=== PATIENT | female | born 1965 | race Caucasian/White ===

== ENCOUNTER → 2018-05-22 10:55 | Outpatient (CLI) | payer MEDICAID, SELFPAY ==
[2018-05-22 12:01] LABS: Absolute Lymphocyte Count 3.37 X10^3/ul (0.83-4.51); Absolute Neutrophil Count 7.8 X10^3/uL (2.0-7.7); Basophil# 0.05 X10^3/uL; Basophil% 0.4 % (0-1); Eosinophil# 0.21 X10^3/uL; Eosinophils% 1.7 % (0-5); Hematocrit 45.9 % (37-47); Lymphocyte # 3.37 X10^3/ul (4.0); Lymphocyte % 27.3 % (19-41); Mean Corp Hgb Conc 32.7 g/gl (32-36); Mean Corpuscular Hgb 32.5 pg (27.0-32.0); Mean Corpuscular Volume 99.4 fL (81-99); Mean Platelet Vol. 10.1 fl (6.2-12.0); Monocyte# 0.81 X10^3/uL; Monocyte% 6.6 % (0-10); Neutrophil # 7.79 X10^3/uL (2.7-7.7); Neutrophil % 63.2 % (47-70); Platelet Count 406 K/mm3 (150-450); Red Blood Count 4.62 M/mm3 (4.2-5.4); White Blood Count 12.3 K/mm3 (4.4-11.0)
[2018-05-22 12:06] LABS: POSITIVE COUNT NO; POSITIVE DIFFERENTIAL NO; POSITIVE MORPHOLOGY NO
[2018-05-22 12:20] LABS: ALB/GLOB Ratio 0.7 RATIO (0.9-2.4); AST(SGOT) 19 U/L (15-37); Alanine Aminotransfer ALT/SGPT 27 U/L (13-56); Albumin, Serum 3.2 g/dL (3.2-5.0); Alkaline Phosphatase 79 U/L (45-117); Anion Gap 8 (5-15); BUN 21 mg/dL (7-18); BUN/Creat Ratio 21.9 RATIO (10-20); Chloride 102 mmol/L (98-107); Cholesterol 180 mg/dL (200); Creatinine, Serum 0.96 mg/dL (0.55-1.02); EST Glomerular Filtration Rate 65 mL/min (>60); Est Glom Filt Rate - Afr Amer 78 mL/min (>60); Globulin 4.3 g/dL (2.2-4.2); Glucose 108 mg/dL (74-106); High Density Lipoprotein 42 mg/dL; Potassium 3.4 mmol/L (3.5-5.1); Protein, Total 7.5 g/dL (6.4-8.2); Sodium Level 138 mmol/L (136-145); Triglycerides 264 mg/dL; Very Low Density Lipoprotein 53 mg/dL (5-40)
--- OUTSIDE RECORDS SUMMARY | 2018-07-08 06:08 | XMS RPT_ITS | Summary of Care ---
:1965 Author Organization [facility] Address [address] [place] [address] Phone Care Team Providers Name Role Phone Antonina Perdue MD Primary Care Provider Unavailable Encounter Details Date Type Department Care Team Description 03/14/2017 Documentation [facility] Orthopedic & Dalia Law, Sports Medicine Physicians HELP DESK AGENT [address] [place] [id number] Allergies Active Allergy Reactions Severity Noted Date Comments Azithromycin GI Intolerance Medium 10/29/2011 Other reaction(s): Nausea Only Other reaction(s): Vomiting as of this encounter Medications Prescription Sig. Disp. Refills Start Date End Date Status lisinopril-hydrochlorothi Take by mouth. Active azide (PRINZIDE,ZESTORETIC) 20-25 mg per tablet metoprolol tartrate Take 25 mg by mouth Active (LOPRESSOR) 25 MG tablet 2 (two) times a day . atorvastatin (LIPITOR) 10 Take 10 mg by mouth Active MG tablet daily. albuterol 90 Inhale 2 puffs Active mcg/actuation inhaler every 6 (six) hours as needed for wheezing. as of this encounter Active Problems Problem Noted Date Hypertension Hyperlipemia as of this encounter Social History Tobacco Use Types Packs/Day Years Used Date Current Every Day Smoker 0.25 30 Smokeless Tobacco: Never Used Alcohol Use Drinks/Week oz/Week Comments Yes 3 Glasses of wine 1.8 Sex Assigned at Date Recorded Not on file as of this encounter Progress Notes Dalia Law LPN - 03/14/2017 4:23 PM EDTI spoke dimitry Moore today and she says she is doing ok. This am when she got up her swelling was down a lot. She denies any constipation/nando this encounter Plan of Treatment Upcoming Encounters Date Type Specialty Care Team Description 03/25/2017 Follow-Up Sports Medicine Arnaud Rizvi MD [address] [facility] [place] [address] [phone] Health Maintenance Due Date Last Done Comments COLONOSCOPY 1965 HEPATITIS C SCREENING 1965 PAP SMEAR 1965 TETANUS EVERY 10 YR 1965 SEQUENTIAL INFLUENZA VACCINE (#1) 2017 as of this encounter Insurance Payer Benefit Plan / Group Subscriber ID Type Phone Address [employer] MANAGED MEDICAID [employer] MED[employer] COMMUNITY PLAN [id number] as of this encounter
--- OUTSIDE RECORDS SUMMARY | 2018-07-08 06:08 | XMS RPT_ITS | Summary of Care ---
:1965 Author Organization [facility] Address [address] [place] [address] Phone Care Team Providers Name Role Phone Antonina Perdue MD Primary Care Provider Unavailable Encounter Details Date Type Department Care Team Description 02/19/2017 Hospital Encounter [facility] Arnaud Rizvi MD [place], [place] [address] [address] [place], [place] [id number] Allergies Active Allergy Reactions Severity Noted Date Comments Azithromycin Medium 10/29/2011 Other reaction(s): Nausea Only Other reaction(s): Vomiting as of this encounter Medications Prescription Sig. Disp. Refills Start Date End Date Status lisinopril-hydrochlorothia Take by mouth. Active zide (PRINZIDE,ZESTORETIC) 20-25 mg per tablet metoprolol tartrate Take 25 mg by Active (LOPRESSOR) 25 MG tablet mouth 2 (two) times a day . as of this encounter Active Problems Problem Noted Date Hypertension Hyperlipemia as of this encounter Social History Tobacco Use Types Packs/Day Years Used Date Current Every Day Smoker 0.25 30 Smokeless Tobacco: Never Used Alcohol Use Drinks/Week oz/Week Comments Yes 3 Glasses of wine 1.8 Sex Assigned at Date Recorded Not on file as of this encounter Plan of Treatment Upcoming Encounters Date Type Specialty Care Team Description 02/25/2017 Surgical Consult Sports Medicine Arnaud Rizvi MD [address] [place], [place] [phone] 03/07/2017 Hospital Encounter Arnaud Rizvi MD [address] [place], [place] [address] 03/07/2017 Scanned Document Sports Medicine Arnaud Rizvi MD [address] [place] [phone] Health Maintenance Due Date Last Done Comments COLONOSCOPY 1965 HEPATITIS C SCREENING 1965 PAP SMEAR 1965 TETANUS EVERY 10 YR 1965 SEQUENTIAL INFLUENZA VACCINE (#1) 2017 as of this encounter Results Basic Metabolic Panel (02/19/2017 10:25 AM) Component Value Ref Range Glucose 75 70 - 99 mg/dL Comment: This test result might be falsely depressed or falsely elevated on samples drawn from patients taking Sulfasalazine and Sulfapyridine. Venipuncture should occur prior to taking either of these drugs. BUN 13 8 - 25 mg/dL Creatinine 0.93 0.40 - 1.10 mg/dL eGFR >=60 ml/min/1.73sq.m Comment: Non- GFR Calc eGFR is an estimated Glomerular Filtration Rate based on the value of the patient's serum creatinine. In outpatients, eGFR should be used as a helpful tool in screening for CKD. In inpatients or patients with acute renal failure, eGFR represents the GFR at the moment of the draw and should be used with caution. eGFR >=60Comment: GFR Calc ml/min/1.73sq.m Calcium 9.0 8.4 - 10.2 mg/dL Sodium 142 135 - 145 mmol/L Potassium 3.7 3.5 - 5.1 mmol/L Chloride 104 98 - 108 mmol/L CO2 28 21 - 32 mmol/L Specimen Performing Laboratory Blood [address] [address] CBC and Differential (02/19/2017 10:25 AM) Component Value Ref Range WBC 11.5 (H) 3.4 - 10.6 K/mcL RBC 4.46 3.7 - 5.0 M/mcL Hemoglobin 15.3 11.6 - 15.4 g/dL Hematocrit 44.0 34.4 - 44.8 % MCV 98.7 82.6 - 98.9 FL MCH 34.3 (H) 27.9 - 33.9 pg MCHC 34.7 33.1 - 35.1 g/dL RDW 14.1 10.0 - 14.4 % Platelets 329 162 - 402 K/mcL MPV 8.0 7.0 - 10.6 FL Absolute Neutrophils 6.9 1.2 - 6.9 K/mcL Absolute Lymphocytes 3.6 1.0 - 3.7 K/mcL Absolute Monocytes 0.7 (H) 0.1 - 0.6 K/mcL Absolute Eosinophils 0.2 0 - 0.5 K/mcL Absolute Basophils 0.1 0 - 0.2 K/mcL Segmented Neut 59.7 % Lymphocytes 30.9 % Monocytes 6.2 % Eosinophils 2.1 % Basophils 1.1 % Specimen Performing Laboratory Blood [address] [address] in this encounter Insurance Payer Benefit Plan / Group Subscriber ID Type Phone Address [facility] MANAGED MEDICAID [facility] MEDICAID COMMUNITY PLAN [id number] as of this encounter
--- OUTSIDE RECORDS SUMMARY | 2018-07-08 06:08 | XMS RPT_ITS | Summary of Care ---
:1965 Author Organization [facility] Address [address] [place] [address] Care Team Providers Name Role Phone Antonina Perdue MD Primary Care Provider Unavailable Encounter Details Date Type Department Care Team Description 12/06/2017 Hospital Encounter [facility] Arnaud Rizvi Erik Portillo MD [place], [place] [address] [facility] [phone] [place] [address] Allergies Active Allergy Reactions Severity Noted Date Comments Azithromycin GI Intolerance Medium 10/29/2011 Other reaction(s): Nausea Only Other reaction(s): Vomiting as of this encounter Medications Prescription Sig. Disp. Refills Start Date End Date Status lisinopril-hydrochlorot Take by mouth. Active hiazide (PRINZIDE,ZESTORETIC) 20-25 mg per tablet metoprolol tartrate Take 25 mg by Active (LOPRESSOR) 25 MG mouth 2 (two) tablet times a day . atorvastatin (LIPITOR) Take 10 mg by Active 10 MG tablet mouth daily. albuterol 90 Inhale 2 puffs Active mcg/actuation inhaler every 6 (six) hours as needed for wheezing. aspirin 81 MG EC tablet Take 81 mg by Active mouth daily. acetaminophen-codeine Take 1 (one) 30 tablet 0 04/23/2017 Active (TYLENOL-CODEINE #3) tablet to 2 (two) 300-30 mg per tablets by mouth tabletIndications: 3 (three) times a Status post total left day as needed for knee replacement pain. as of this encounter Active Problems Problem Noted Date Hypertension Hyperlipemia Social History Tobacco Use Types Packs/Day Years Used Date Current Every Day Smoker 0.25 30 Smokeless Tobacco: Never Used Alcohol Use Drinks/Week oz/Week Comments Yes 3 Glasses of wine 1.8 Sex Assigned at Date Recorded Not on file as of this encounter Plan of Treatment Upcoming Encounters Date Type Specialty Care Team Description 12/10/2017 Hospital Encounter Arnaud Rizvi MD [address] [place], [place] [phone] 12/23/2017 Surgical Consult Sports Medicine Arnaud Rizvi MD [address] [place], [place] [phone] 01/02/2018 Hospital Encounter Arnaud Rizvi MD [address] [place], [place] [phone] 01/02/2018 Scanned Document Sports Medicine Arnaud Rizvi MD [address] [place], [place] [phone] Health Maintenance Due Date Last Done Comments COLONOSCOPY 1965 HEPATITIS C SCREENING 1965 PAP SMEAR 1965 TETANUS EVERY 10 YR 1965 SEQUENTIAL INFLUENZA VACCINE (Season Ended) 2018 as of this encounter
--- OUTSIDE RECORDS SUMMARY | 2018-07-08 06:08 | XMS RPT_ITS | Summary of Care ---
:1965 Author Organization [facility] Address [address] [place] [address] Care Team Providers Name Role Phone Antonina Perdue MD Primary Care Provider Unavailable Reason for Visit Reason Comments Follow-up Encounter Details Date Type Department Care Team Description 03/24/2018 Office Visit [facility] Orthopedic Adriana Rizvi Arthritis of right knee (Primary Dx); & Sports Medicine MD Bandar Status post total left knee replacement Physicians [address] [place] [address] [place] [id number] Allergies Active Allergy Reactions Severity Noted Date Comments Azithromycin GI Intolerance Medium 10/29/2011 Other reaction(s): Nausea Only Other reaction(s): Vomiting as of this encounter Medications Prescription Sig. Disp. Refills Start Date End Date Status lisinopril-hydrochl Take by mouth. Active orothiazide (PRINZIDE,ZESTORETI C) 20-25 mg per tablet metoprolol tartrate Take 25 mg by Active (LOPRESSOR) 25 MG mouth 2 (two) tablet times a day . atorvastatin Take 10 mg by Active (LIPITOR) 10 MG mouth daily. tablet albuterol 90 Inhale 2 puffs Active mcg/actuation every 6 (six) inhaler hours as needed for wheezing. aspirin 81 MG EC Take 81 mg by Active tablet mouth daily. acetaminophen-codei Take 1 (one) 30 tablet 0 04/23/2017 03/24/2018 Discontinued ne (TYLENOL-CODEINE tablet to 2 #3) 300-30 mg per (two) tablets tabletIndications: by mouth 3 Status post total (three) times left knee a day as replacement needed for pain. Hospital, Clinic, or Other Ordered Dose Route Frequency Start Date End Date Status Facility Administered Medication triamcinolone acetonide 20 mg IAtc Once 03/24/2018 03/24/2018 Ended (KENALOG-40) injection 20 mg as of this encounter Active Problems Problem Noted Date Hypertension Hyperlipemia Social History Tobacco Use Types Packs/Day Years Used Date Current Every Day Smoker 0.25 30 Smokeless Tobacco: Never Used Alcohol Use Drinks/Week oz/Week Comments Yes 3 Glasses of wine 1.8 Sex Assigned at Date Recorded Not on file as of this encounter Progress Notes Adriana Rizvi MD - 03/24/2018 5:09 PM EDT Dictation on: 03/24/2018 5:10 PM by: ADRIANA RIZVI [[id number]] in this encounter Plan of Treatment Health Maintenance Due Date Last Done Comments COLONOSCOPY 1965 HEPATITIS C SCREENING 1965 PAP SMEAR 1965 TETANUS EVERY 10 YR 1965 URINE MICROALBUMIN 1975 SEQUENTIAL INFLUENZA VACCINE (#1) 2018 as of this encounter Procedures Procedure Name Priority Date/Time Associated Diagnosis Comments XR KNEE LEFT 3 Routine 03/24/2018 5:10 PM Status post total Results for this VIEWS (SPECIFY EDT left knee procedure are in VIEWS IN COMMENTS) replacement the results section. in this encounter Results XR Knee Left 3 Views (Specify Views in Comments) (03/24/2018 5:10 PM) Narrative Performed At X-ray of the left knee 3 views for 1 year postop reveals normal-appearing GE RIS left total knee replacement Performing Organization Address City/State/Zipcode Phone Number [facility] GE [facility]IS in this encounter Visit Diagnoses Diagnosis Arthritis of right knee - Primary Status post total left knee replacement Administered Medications Inactive Administered Medications - up to 3 most recent administrations Medication Order MAR Action Action Date Dose Rate Site triamcinolone acetonide (KENALOG-40) Given 03/24/2018 17:11 EDT 20 mg injection 20 mg 20 mg, Intra-articular, Once, 03/24/18 at 1800, For 1 dose, [facility][NOTE 3] [id number] in this encounter
--- OUTSIDE RECORDS SUMMARY | 2018-07-08 06:08 | XMS RPT_ITS | Summary of Care ---
:1965 Author Organization [facility] Address [address] [place] [address] Care Team Providers Name Role Phone Antonina Perdue MD Primary Care Provider Unavailable Reason for Visit Nuclear Medicine (Routine) Status Reason Specialty Diagnoses / Referred By Referred To Procedures Contact Contact Authorized Radiology Diagnoses Chest pain, unspecified type Huerta, Procedures NM Myocardial Perfusion Study Single - Stress Only NM Myocardial Perfusion Multiple SPECT Skye Jones MD [address] [place] [address] Encounter Details Date Type Department Care Team Description 01/08/2018 Hospital Encounter [facility] Heart & Deanna, Chest pain, Vascular Physicians Skye Jones MD unspecified type [address] [place] [address] Medical Office [place], [place] [address] [address] [place], [place] [phone] [address] Allergies Active Allergy Reactions Severity Noted Date [...] Not on file as of this encounter Last Filed Vital Signs Vital Sign Reading Time Taken Blood Pressure 112/83 01/08/2018 8:28 AM EDT Pulse 65 01/08/2018 8:28 AM EDT Temperature - - Respiratory Rate - - Oxygen Saturation - - Inhaled Oxygen Concentration - - Weight 105.2 kg (231 lb 14.8 oz) 01/08/2018 8:28 AM EDT Height 167.6 cm (5' 5.98) 01/08/2018 8:28 AM EDT Body Mass Index 37.45 01/08/2018 8:28 AM EDT in this encounter Nursing Notes Jennifer Santana RN - 01/08/2018 9:00 AM EDTBaseline ECG- Sinus rhythm. Tolerated Lexiscan well. Appropriate HR and BP response. No chest pain. No arrhythmia.in this encounter Plan of Treatment Upcoming Encounters Date Type Specialty Care Team Description 01/21/2018 Office Visit Cardiology Sean West MD [address] [place] [address] Health Maintenance Due Date Last Done Comments COLONOSCOPY 1965 HEPATITIS C SCREENING 1965 PAP SMEAR 1965 TETANUS EVERY 10 YR 1965 URINE MICROALBUMIN 1975 SEQUENTIAL INFLUENZA VACCINE (#1) 2018 as of this encounter Results NM Myocardial Perfusion Study Single - Stress Only (01/08/2018 10:26 AM) Specimen Performing Laboratory [facility] [address] [place] [address] Narrative ?Nuclear Report Patient:? ALISSA APPIAH? Med Rec#:?[id number]? (Age): 1965(52y) ? Height:? 167.6(cm)/65(in Study Date:?01/08/2018? Weight:? 105.2(kg)/231(l Room#:?BSA:?2.13? Type:?Outpatient? Loc:? Sex:? F Indications: -Chest pain, unspecified 786.50?-? Checklists: -Patient verbally identified self?-Patient consent obtained in lab?-Procedure verified and explained to patient?-Medication Reconciliation completed.?-Discharge instructions given? Nuclear Cardiology Conclusion: Normal regadenoson myocardial perfusion . Overall intermediate-risk study based on SCAI criteria (1-3% predicted annual cardiac mortality). Intermediate risk study based on functional capacity.?Normal myocardial perfusion in all segments on stress imaging.?No rest imaging performed. Normal left ventricular size, wall motion and systolic function, LVEF 66%.? Stress ECG Conclusion: Normal Regadenoson Stress Test . No diagnostic ECG changes with Regadenoson.? Baseline ECG: Normal sinus rhythm.?Non-specific ST-T wave changes.? Pharmacologic Protocol: - The patient was unable to exercise due to difficulty walking. - Regadenoson 0.4mg IV Bolus was given over 10-20 seconds. - Tolerated Medication Infusion. Stress ECG : There is normal sinus rhythm.?No ectopy noted.?No ST-segment depression under pharmacologic stress.?There is non-specific ST-segment changes .? Recovery ECG: Normal sinus rhythm.?No ectopy noted.? Hemodynamics? REST? STRESS?RECOVERY? SBP? 112 mmHg?112 mmHg?109 mmHg? DBP? 83?mmHg?76?mmHg?70?mmHg? HR?65?bpm? 88?bpm? 79?bpm? %MPHR? 52?%? Imaging Protocol: This was a gated SPECT myocardial perfusion imaging study.?A stress only imaging protocol was followed using Tc-99m tetrofosmin (Myoview) injected intravenously.?For the stress portion of the study, 11 mCi was administered at 01/08/2018 08:26:09.?Stress imaging was performed at 09:30:00.? Perfusion Interpretation: Stress nuclear myocardial perfusion imaging was normal. No rest imaging was performed.? The stress nuclear myocardial perfusion imaging was normal. No resting imaging was performed.? Wall Motion Interpretation: The patient's calculated post stress LVEF was 66%.?The patient's end diastolic volume was 68ml.?The patient's end systolic volume was 23ml. Gated imaging under post-stress conditions demonstrated normal wall motion.? Nuclear Doctor Interpreted Study and Electronically signed at 01/08/2018 12:38:12 by: Nohemi Meyer? Procedure Note Interface, Rad In [facility] [employer] - 01/08/2018 12:40 PM EDT Nuclear Report Patient: ALISSA APPIAH [facility] Rec#: [id number] (Age): 1965(52y) Height: 167.6(cm)/65(in Study Date: 01/08/2018 Weight: 105.2(kg)/231(l Room#: BSA: 2.13 Type: Outpatient Loc: Sex: F Indications: -Chest pain, unspecified 786.50 - Checklists: -Patient verbally identified self -Patient consent obtained in lab -Procedure verified and explained to patient -Medication Reconciliation completed. -Discharge instructions given Nuclear Cardiology Conclusion: Normal regadenoson myocardial perfusion . Overall intermediate-risk study based on SCAI criteria (1-3% predicted annual cardiac mortality). Intermediate risk study based on functional capacity. Normal myocardial perfusion in all segments on stress imaging. No rest imaging performed. Normal left ventricular size, wall motion and systolic function, LVEF 66%. Stress ECG Conclusion: Normal Regadenoson Stress Test . No diagnostic ECG changes with Regadenoson. Baseline ECG: Normal sinus rhythm. Non-specific ST-T wave changes. Pharmacologic Protocol: - The patient was unable to exercise due to difficulty walking. - Regadenoson 0.4mg IV Bolus was given over 10-20 seconds. - Tolerated Medication Infusion. Stress ECG : There is normal sinus rhythm. No ectopy noted. No ST-segment depression under pharmacologic stress. There is non-specific ST-segment changes . Recovery ECG: Normal sinus rhythm. No ectopy noted. Hemodynamics REST STRESS RECOVERY SBP 112 mmHg 112 mmHg 109 mmHg DBP 83 mmHg 76 mmHg 70 mmHg HR 65 bpm 88 bpm 79 bpm %MPHR 52 % Imaging Protocol: This was a gated SPECT myocardial perfusion imaging study. A stress only imaging protocol was followed using Tc-99m tetrofosmin (Widbookview) injected intravenously. For the stress portion of the study, 11 mCi was administered at 01/08/2018 08:26:09. Stress imaging was performed at 09:30:00. Perfusion Interpretation: Stress nuclear myocardial perfusion imaging was normal. No rest imaging was performed. The stress nuclear myocardial perfusion imaging was normal. No resting imaging was performed. Wall Motion Interpretation: The patient's calculated post stress LVEF was 66%. The patient's end diastolic volume was 68ml. The patient's end systolic volume was 23ml. Gated imaging under post-stress conditions demonstrated normal wall motion. Nuclear Doctor Interpreted Study and Electronically signed at 01/08/2018 12:38:12 by: Nohemi Meyer MD in this encounter Visit Diagnoses Diagnosis Chest pain, unspecified type
--- OUTSIDE RECORDS SUMMARY | 2018-07-08 06:08 | XMS RPT_ITS | Summary of Care ---
:1965 Author Organization [facility] Address [address] [place] [address] Phone Care Team Providers Name Role Phone Antonina Perdue MD Primary Care Provider Unavailable Encounter Details Date Type Department Care Team Description 02/19/2017 Documentation [facility] Orthopedic & Dalia Law, Sports Medicine Physicians CAREER GUIDANCE TECHNICIAN [address] [place] [address] Allergies Active Allergy Reactions Severity Noted Date Comments Azithromycin Medium 10/29/2011 Other reaction(s): Nausea Only Other reaction(s): Vomiting as of this encounter Medications Prescription Sig. Disp. Refills Start Date End Date Status lisinopril-hydrochlorothia Take by mouth. Active zide (PRINZIDE,ZESTORETIC) 20-25 mg per tablet metoprolol tartrate Take 25 mg by Active (LOPRESSOR) 25 MG tablet mouth 2 (two) times a day . atorvastatin (LIPITOR) 10 Take 10 mg by Active MG tablet mouth daily. as of this encounter Active Problems Problem Noted Date Hypertension Hyperlipemia as of this encounter Social History Tobacco Use Types Packs/Day Years Used Date Current Every Day Smoker 0.25 30 Smokeless Tobacco: Never Used Alcohol Use Drinks/Week oz/Week Comments Yes 3 Glasses of wine 1.8 Sex Assigned at Date Recorded Not on file as of this encounter Progress Notes Dalia Law LPN - 02/19/2017 5:00 PM Mariano had an elevated WBC of 11.5 w her pre-op testing, she denies any illness, no head/chests congestion. We will repeat the CBC on 02-25-17 at [facility] this encounter Plan of Treatment Upcoming Encounters Date Type Specialty Care Team Description 02/25/2017 Surgical Consult Sports Medicine Arnaud Rizvi MD [address] [place] [address] [phone] 03/07/2017 Hospital Encounter Arnaud Rizvi MD [address] [place] [address] [phone] 03/07/2017 Scanned Document Sports Medicine Arnaud Rizvi MD [address] [place] [place] [address] [phone] Health Maintenance Due Date Last Done Comments COLONOSCOPY 1965 HEPATITIS C SCREENING 1965 PAP SMEAR 1965 TETANUS EVERY 10 YR 1965 SEQUENTIAL INFLUENZA VACCINE (#1) 2017 as of this encounter Insurance Payer Benefit Plan / Group Subscriber ID Type Phone Address [facility] MANAGED MEDICAID [facility] MEDICAID COMMUNITY PLAN [id number] as of this encounter
--- OUTSIDE RECORDS SUMMARY | 2018-07-08 06:08 | XMS RPT_ITS | Summary of Care ---
:[address] [facility] Address [address] [place] [address] Care Team Providers Name Role Phone Antonina Perdue MD Primary Care Provider Unavailable Encounter Details Date Type Department Care Team Description 01/05/[address] [facility] Heart & Skye Huerta Vascular Physicians MD [address] [place] [address] [place] [address] Allergies Active Allergy Reactions Severity Noted [...] file as of this encounter Progress Notes Skye Huerta MD - 01/05/2018 4:[address] Mason Moreno of the [facility] to set up a lexiscan SPECT for this patient with a hx of chest pain and risk factors of HTN, HLD and tobacco abuse. She ruled out in the ED. Results should be sent to the patient's PCP I did not personally evaluate the patient. Reviewed ED chart for appropriateness. Hx of orthopedicknee issues and therefore cannot ambulate on treadmill. in this encounter Plan of Treatment Health Maintenance Due Date Last Done Comments COLONOSCOPY 1965 HEPATITIS C SCREENING 1965 PAP SMEAR 1965 TETANUS EVERY 10 YR 1965 URINE MICROALBUMIN 1975 SEQUENTIAL INFLUENZA VACCINE (#1) 2018 as of this encounter
--- OUTSIDE RECORDS SUMMARY | 2018-07-08 06:08 | XMS RPT_ITS | Summary of Care ---
:1965 Author Organization [facility] Address [address] [place] [address] Care Team Providers Name Role Phone Antonina Perdue MD Primary Care Provider Unavailable Encounter Details Date Type Department Care Team Description 01/08/2018 Hospital Encounter [facility] Skye Huerta [address] [place], [place] [address] [address] [place] [address] Allergies Active Allergy Reactions Severity Noted Date [...] Visit Cardiology Sean West MD [address] [place] [address] [phone] Health Maintenance Due Date Last Done Comments COLONOSCOPY 1965 HEPATITIS C SCREENING 1965 PAP SMEAR 1965 TETANUS EVERY 10 YR 1965 URINE MICROALBUMIN 1975 SEQUENTIAL INFLUENZA VACCINE (#1) 2018 as of this encounter
--- OUTSIDE RECORDS SUMMARY | 2018-07-08 06:08 | XMS RPT_ITS | Summary of Care ---
:1965 Author Organization [facility] Address [address] [place] [address] Care Team Providers Name Role Phone Antonina Perdue MD Primary Care Provider Unavailable Reason for Visit Reason Comments Pain Pain Encounter Details Date Type Department Care Team Description 10/07/2017 Office Visit [facility] Adriana Rizvi Impingement syndrome of right shoulder (Primary Dx); Orthopedic & Sports MD Bandar Primary osteoarthritis of right knee Medicine Physicians [address] [place] [address] [place] [address] [phone] Allergies Active Allergy Reactions Severity Noted Date [...] day as needed for knee replacement pain. Hospital, Clinic, or Other Ordered Dose Route Frequency Start Date End Date Status Facility Administered Medication triamcinolone acetonide 20 mg IAtc Once 10/07/2017 10/07/2017 Ended (KENALOG-40) injection 20 mg triamcinolone acetonide 20 mg IAtc Once 10/07/2017 10/07/2017 Ended (KENALOG-40) injection 20 mg as of [...] encounter Progress Notes Adriana Rizvi MD - 10/07/2017 6:16 PM EDT Dictation on: 10/07/2017 6:17 PM by: ADRIANA RIZVI [[id number]] in this encounter Plan of Treatment Health Maintenance Due Date Last Done Comments COLONOSCOPY 1965 HEPATITIS C SCREENING 1965 PAP SMEAR 1965 TETANUS EVERY 10 YR 1965 SEQUENTIAL INFLUENZA VACCINE (#1) 2017 as of this encounter Visit Diagnoses Diagnosis Impingement syndrome of right shoulder - Primary Primary osteoarthritis of right knee Administered Medications Inactive Administered Medications - up to 3 most recent administrations Medication Order MAR Action Action Date Dose Rate Site triamcinolone acetonide (KENALOG-40) Given 10/07/2017 18:17 EDT 20 mg injection 20 mg 20 mg, Intra-articular, Once, 10/07/17 at 1915, For 1 dose, [facility] [id number] triamcinolone acetonide (KENALOG-40) injection 20 Given 10/07/2017 18:17 EDT 20 mg mg 20 mg, Intra-articular, Once, 10/07/17 at 1915, For 1 dose, [facility] [id number] in this encounter
--- OUTSIDE RECORDS SUMMARY | 2018-07-08 06:08 | XMS RPT_ITS | Summary of Care ---
:1965 Author Organization [facility] Address [address] [place] [address] Phone Care Team Providers Name Role Phone Antonina Perdue MD Primary Care Provider Unavailable Reason for Referral Evaluate and Treat (Routine) Status Reason Specialty Diagnoses / Referred By Referred To Procedures Contact Contact Closed Specialty Cardiology Diagnoses Pre-operative cardiovascular examination Pia Rizvi pmc Services MD Erik Tsai Required/Patient [address] [place], [place] Medical Office [facility] Building Phone: [place], [place] [phone] Fax: Reason for Visit Reason Comments Hypertension Pt is having L TKR sx date 03/07/2017/Dmitri. Pt denies any cardiac concerns for today's OV. Evaluate and Treat (Routine) Status Reason Specialty Diagnoses / Referred By Referred To Procedures Contact Contact Closed Specialty Cardiology Diagnoses Pre-operative cardiovascular examination Pia Rizvi [facility] Services MD Erik Tsai Required/Patient [address] [place], [place] Medical Office [address] Building Phone: [place], [place] [phone] Fax: Encounter Details Date Type Department Care Team Description 02/15/2017 Office Visit [facility] Heart & Arnaud Rizvi MD [address] [place] [id number] [phone] Pre-operative Vascular Physicians Harrison Cartagena DO [address] [place] [address] [phone] examination (Primary [place], [place] Dx);Essential [phone] hypertension;Hyperlipid [phone] emia, unspecified hyperlipidemia type Allergies Active Allergy Reactions Severity Noted Date [...] Vital Sign Reading Time Taken Blood Pressure 121/86 02/15/2017 9:25 AM EDT Pulse 85 02/15/2017 9:25 AM EDT Temperature - - Respiratory Rate - - Oxygen Saturation 95% 02/15/2017 9:25 AM EDT Inhaled Oxygen Concentration - - Weight 105.5 kg (232 lb 8 oz) 02/15/2017 9:25 AM EDT Height 167.6 cm (5' 6) 02/15/2017 9:25 AM EDT Body Mass Index 37.53 02/15/2017 9:25 AM EDT in this encounter Progress Notes Harrison Cartagena DO - 02/15/2017 9:38 AM EDTFormatting of this note may be different from the original. [facility] Physicians [address] [place] [id number] Dear Antonina Perdue MD, I had the pleasure of meeting Teresa Pina at [facility] in [place] today. As you are aware she is a pleasant 51 y.o. female. Patient presents today for preoperative recognitions treatment options prior to proposed total knee replacement surgery. The patient is active in her activities of daily living. She denies chest discomfort, dyspnea, orthopnea, paroxysmal nocturnal dyspnea, palpitations, near syncope or tanner syncope. She denies GI or bleeding, melena, arthralgias or claudication. Impression: 1. Preoperative risk assessment 2. Hypertension 3. Hyperlipidemia Plan: This appears acceptable risk for her proposed procedure. Her heart rate and blood pressure appear at goal. We have made no additions or changes. We have asked her to take her antihypertensive regimen around the time of surgery. We discussed dietary and lifestyle modification to facilitate risk factor reduction particularly tobacco cessation. We will look forward to seeing her on an as- needed basis. Dietary and lifestyle modification education was given. Thank you for the pleasure/privilege of visiting with your patient today. Please do not hesitate to contact me directly if you have any questions. Cardiac risk factors: Age, postmenopausal female, hypertension, hyperlipidemia, tobacco abuse Allergies Allergen Reactions ??? Azithromycin Other reaction(s): Nausea Only Other reaction(s): Vomiting Current Outpatient Prescriptions: ??? atorvastatin (LIPITOR) 10 MG tablet, Take 10 mg by mouth daily., Disp: , Rfl: ??? lisinopril-hydrochlorothiazide (PRINZIDE,ZESTORETIC) 20-25 mg per tablet, Take by mouth., Disp:, Rfl: ??? metoprolol tartrate (LOPRESSOR) 25 MG tablet, Take 25 mg by mouth 2 (two) times a day ., Disp: , Rfl: Past Medical History: Diagnosis Date ??? Anxiety ??? Arm weakness ??? Asthma ??? Bronchitis ??? Depression ??? Hyperlipemia ??? Hypertension ??? SOB (shortness of breath) ??? Tired ??? Vision impairment Past Surgical History: Procedure Laterality Date ??? ABLATION WITH PHENOL vaginal ??? SECTION, CLASSIC ??? TOTAL KNEE ARTHROPLASTY 03/07/2017 Social History Social History ??? Marital status: Single Spouse name: N/A ??? Number of children: N/A ??? Years of education: N/A Social History Main Topics ??? Smoking status: Current Every Day Smoker Packs/day: 0.25 Years: 30.00 ??? Smokeless tobacco: Never Used ??? Alcohol use 1.8 oz/week 3 Glasses of wine per week ??? Drug use: No ??? Sexual activity: Not Asked Other Topics Concern ??? None Social History Narrative History reviewed. No pertinent family history. Review of Systems Constitution: Negative for diaphoresis, malaise/fatigue, weight gain and weight loss. HENT: Negative for hearing loss, nosebleeds and tinnitus. Eyes: Negative for blurred vision and visual disturbance. Cardiovascular: Negative for chest pain, claudication, cyanosis, dyspnea on exertion, irregular heartbeat, leg swelling, near-syncope, orthopnea, palpitations, paroxysmal nocturnal dyspnea and syncope. Respiratory: Negative for hemoptysis, shortness of breath and snoring. Endocrine: Negative for cold intolerance and heat intolerance. Hematologic/Lymphatic: Does not bruise/bleed easily. Skin: Negative for flushing, poor wound healing and rash. Musculoskeletal: Positive for joint pain and joint swelling. Negative for back pain, muscle weaknessand myalgias. Gastrointestinal: Negative for abdominal pain, change in bowel habit, melena, nausea and vomiting. Genitourinary: Negative for decreased libido and hematuria. Neurological: Negative for loss of balance and numbness. Psychiatric/Behavioral: Negative for memory loss. The patient is not nervous/anxious. PACU Vitals 02/15/17 0925 BP: 121/86 Pulse: 85 SpO2: 95% Height: 5' 6 Weight: 105.5 kg (232 lb 8 oz) Physical Exam Constitutional: She is oriented to person, place, and time. She appears well- developed and well-nourished. HENT: Head: Normocephalic and atraumatic. Nose: Nose normal. Eyes: Right eye exhibits no discharge. Left eye exhibits no discharge. No scleral icterus. Neck: Neck supple. No JVD present. No thyromegaly present. Cardiovascular: Normal rate, regular rhythm, S1 normal, S2 normal and intact distal pulses. Exam reveals no gallop and no friction rub. No murmur heard. Pulmonary/Chest: Breath sounds normal. She has no wheezes. She has no rales. Abdominal: Soft. She exhibits no distension. There is no tenderness. Musculoskeletal: She exhibits no edema or tenderness. No clubbing or cyanosis. Lymphadenopathy: She has no cervical adenopathy. Neurological: She is alert and oriented to person, place, and time. Skin: Skin is warm and dry. Psychiatric: She has a normal mood and affect. Her behavior is normal. Nursing note and vitals reviewed. EKG: Results for orders placed in visit on 02/15/17 ECG 12 Lead EKG performed today demonstrates normal sinus rhythm with low voltage criteria but is otherwise a normal EKG. There is no prior available for comparison.in this encounter Plan of Treatment Upcoming Encounters Date Type Specialty Care Team Description 02/18/2017 Office Visit Sports Medicine Arnaud Rizvi MD [address] [place] [address] 03/07/2017 Hospital Encounter Arnaud Rizvi MD [address] [place] [address] 03/07/2017 Scanned Document Sports Medicine Arnaud Rizvi MD [address] [place] [address] Health Maintenance Due Date Last Done Comments COLONOSCOPY 1965 HEPATITIS C SCREENING 1965 PAP SMEAR 1965 TETANUS EVERY 10 YR 1965 SEQUENTIAL INFLUENZA VACCINE (#1) 2017 as of this encounter Results ECG 12 Lead (02/15/2017 9:30 AM) Component Value Ref Range Atrial Rate Ventricular Rate P-R Interval QRS Duration Q-T Interval Q-T Interval (corrected) QTC Calculation (Bezet) P Rachel R Rachel T Rachel in this encounter Visit Diagnoses Diagnosis Pre-operative cardiovascular examination - Primary Essential hypertension Unspecified essential hypertension Hyperlipidemia, unspecified hyperlipidemia type in this encounter Insurance Payer Benefit Plan / Group Subscriber ID Type Phone Address [facility] MANAGED MEDICAID [employer] MEDICAID COMMUNITY PLAN [id number] Home: [address] [phone] [place], [facility] [id number] as of this encounter
--- OUTSIDE RECORDS SUMMARY | 2018-07-08 06:08 | XMS RPT_ITS | Summary of Care ---
:1965 Author Organization [facility] Address [address] [place] [address] Care Team Providers Name Role Phone Antonina Perdue MD Primary Care Provider Unavailable Reason for Visit Nuclear Medicine (Routine) Status Reason Specialty Diagnoses / Referred By Referred To Procedures Contact Contact Authorized Radiology Diagnoses Chest pain, unspecified type Huerta, Procedures NM Myocardial Perfusion Study Single - Stress Only NM Myocardial Perfusion Multiple SPECT Skye Jones MD [address] [place] [address] Encounter Details Date Type Department Care Team Description 01/08/2018 Hospital Encounter [facility] Heart & Deanna, Chest pain, Vascular Physicians Skye Jones MD unspecified type [address] [place] [address] Medical Office [place], [place] Building [address] [place], [place] [phone] Allergies Active Allergy Reactions Severity Noted [...] Visit Cardiology Sean West MD [address] [place] [address] [phone] Health Maintenance Due Date Last Done Comments COLONOSCOPY 1965 HEPATITIS C SCREENING 1965 PAP SMEAR 1965 TETANUS EVERY 10 YR 1965 URINE MICROALBUMIN 1975 SEQUENTIAL INFLUENZA VACCINE (#1) 2018 as of this encounter Visit Diagnoses Diagnosis Chest pain, unspecified type
--- OUTSIDE RECORDS SUMMARY | 2018-07-08 06:08 | XMS RPT_ITS | Summary of Care ---
:1965 Author Organization [facility] Address [address] [place] [address] Phone Care Team Providers Name Role Phone Antonina Perdue MD Primary Care Provider Unavailable Reason for Referral Physical Therapy (Routine) Status Reason Specialty Diagnoses / Referred By Referred To Procedures Contact Contact Authorized Rehabilitation Diagnoses Status post total left knee replacement Adriana Rizvi MD [address] [place] [address] Reason for Visit Reason Comments Suture / Staple Removal Wound Check Encounter Details Date Type Department Care Team Description 03/25/2017 Follow-Up [facility] Orthopedic Adriana Rizvi Status post total left & Sports Medicine MD Bandar knee replacement Physicians [address] (Primary Dx) [address] [place] [address] [place] [address] [phone] Allergies Active Allergy Reactions Severity Noted Date Comments Azithromycin GI Intolerance Medium 10/29/2011 Other reaction(s): Nausea Only Other reaction(s): Vomiting as of this encounter Medications Prescription Sig. Disp. Refills Start Date End Date Status lisinopril-hydrochl Take by Active orothiazide mouth. (TEN HOLBROOK C) 20-25 mg per tablet metoprolol tartrate Take 25 mg by Active (LOPRESSOR) 25 MG mouth 2 (two) tablet times a day . atorvastatin Take 10 mg by Active (LIPITOR) 10 MG mouth daily. tablet albuterol 90 Inhale 2 Active mcg/actuation puffs every 6 inhaler (six) hours as needed for wheezing. oxyCODONE-acetamino Take 1 (one) 60 tablet 0 03/25/2017 04/04/2017 Active phen (PERCOCET) tablet by 5-325 mg per mouth every 4 tabletIndications: (four) hours Status post total as needed for left knee pain. replacement oxyCODONE-acetamino Take 1 (one) 80 tablet 0 03/15/2017 03/25/2017 Discontinued phen (PERCOCET) tablet by 5-325 mg per mouth every 4 tabletIndications: (four) hours Status post total as needed for left knee pain. replacement as of this encounter Active Problems Problem Noted Date Hypertension Hyperlipemia as of this encounter Social History Tobacco Use Types Packs/Day Years Used Date Current Every Day Smoker 0.25 30 Smokeless Tobacco: Never Used Alcohol Use Drinks/Week oz/Week Comments Yes 3 Glasses of wine 1.8 Sex Assigned at Date Recorded Not on file as of this encounter Progress Notes Adriana Rizvi MD - 03/25/2017 1:56 PM EDT Dictation on: 03/25/2017 1:57 PM by: ADRIANA RIZVI [[id number]] in this encounter Plan of Treatment Upcoming Encounters Date Type Specialty Care Team Description 04/22/2017 Hospital Encounter Adriana Rizvi MD [address] [place] [address] [phone] 04/22/2017 Follow-Up Sports Medicine Adriana Rizvi MD [address] [place], [place] [id number] Scheduled Referrals Name Priority Associated Diagnoses Order Schedule Ambulatory ref to Therapy Routine Status post total left 1 Occurrences starting (PT/OT/ST) knee replacement 03/25/2017 until 03/25/2018 Health Maintenance Due Date Last Done Comments COLONOSCOPY 1965 HEPATITIS C SCREENING 1965 PAP SMEAR 1965 TETANUS EVERY 10 YR 1965 SEQUENTIAL INFLUENZA VACCINE (#1) 2017 as of this encounter Visit Diagnoses Diagnosis Status post total left knee replacement - Primary in this encounter Insurance Payer Benefit Plan / Group Subscriber ID Type Phone Address [facility] MANAGED MEDICAID [facility] MEDICAID COMMUNITY PLAN [id number] Home: [address] [place] [phone] [place] [id number] as of this encounter
--- OUTSIDE RECORDS SUMMARY | 2018-07-08 06:08 | XMS RPT_ITS | Summary of Care ---
:1965 Author Organization [facility] Address [address] [place] [address] Care Team Providers Name Role Phone Antonina Perdue MD Primary Care Provider Unavailable Reason for Visit Nuclear Medicine (Routine) Status Reason Specialty Diagnoses / Referred By Referred To Procedures Contact Contact Authorized Radiology Diagnoses Chest pain, unspecified type Deanna, Procedures NM Myocardial Perfusion Study Single - Stress Only NM Myocardial Perfusion Multiple SPECT Skye Jones MD [address] [place] [address] Encounter Details Date Type Department Care Team Description 01/08/2018 Hospital Encounter [facility] Heart & Skye Huerta Vascular Physicians MD Karen [address] [place], [place] [address]car[facility] [place] [address] [place], [place] [phone] [phone] Allergies Active Allergy Reactions Severity Noted Date [...] Visit Cardiology Sean West MD [address] [place] [address] [phone] Health Maintenance Due Date Last Done Comments COLONOSCOPY 1965 HEPATITIS C SCREENING 1965 PAP SMEAR 1965 TETANUS EVERY 10 YR 1965 URINE MICROALBUMIN 1975 SEQUENTIAL INFLUENZA VACCINE (#1) 2018 as of this encounter
--- OUTSIDE RECORDS SUMMARY | 2018-07-08 06:08 | XMS RPT_ITS | Summary of Care ---
:1965 Author Organization [facility] Address [address] [place] [address] Care Team Providers Name Role Phone Antonina Perdue MD Primary Care Provider Unavailable Reason for Visit Nuclear Medicine (Routine) Status Reason Specialty Diagnoses / Referred By Referred To Procedures Contact Contact Authorized Radiology Diagnoses Chest pain, unspecified type Deanna, Procedures NM Myocardial Perfusion Study Single - Stress Only NM Myocardial Perfusion Multiple SPECT Skye Jones MD [address] [place] [address] Encounter Details Date Type Department Care Team Description 01/08/2018 Hospital Encounter [facility] Heart & Skye Huerta Vascular Physicians MD Karen [address] [place], [place] [address] [place] [address] [place], [place] [phone] [address] [phone] Allergies Active Allergy Reactions Severity Noted Date [...] Visit Cardiology Sean West MD [address] [place] [address] [phone] Health Maintenance Due Date Last Done Comments COLONOSCOPY 1965 HEPATITIS C SCREENING 1965 PAP SMEAR 1965 TETANUS EVERY 10 YR 1965 URINE MICROALBUMIN 1975 SEQUENTIAL INFLUENZA VACCINE (#1) 2018 as of this encounter Administered Medications Inactive Administered Medications - up to 3 most recent administrations Medication Order MAR Action Action Date Dose Rate Site regadenoson (LEXISCAN) injection 0.4 Given 01/08/2018 08:45 EDT 0.4 mg mg 0.4 mg, Intravenous, Once, Sat01/08/18 at 0945, For 1 dose technetium (Tc-99m) Contrast Administered 01/08/2018 08:46 EDT 11 millicuries tetrofosmin (Tc-MYOVIEW) injection 8-25 millicurie 8-25 millicurie, Intravenous, Once, Sat01/08/18 at 0900, For 1 dose in this encounter
--- OUTSIDE RECORDS SUMMARY | 2018-07-08 06:09 | XMS RPT_ITS | Summary of Care ---
:1965 Author Organization [facility] Address [address] [place] [address] Phone Care Team Providers Name Role Phone Antonina Perdue MD Primary Care Provider Unavailable Reason for Visit Reason Comments Follow-up Encounter Details Date Type Department Care Team Description 04/23/2017 Follow-Up [facility] Orthopedic DmitriAdriana Status post total left & Sports Medicine MD Bandar knee replacement Physicians [address] (Primary Dx) [address] [place] [address] [place] [address] [phone] Allergies Active Allergy Reactions Severity Noted Date [...] 1 (one) 30 tablet 0 04/23/2017 Active ne (TYLENOL-CODEINE tablet to 2 #3) 300-30 mg per (two) tablets tabletIndications: by mouth 3 Status post total (three) times left knee a day as replacement needed for pain. acetaminophen-codei Take 1 (one) 40 tablet 0 04/19/2017 04/23/2017 Discontinued ne (TYLENOL-CODEINE tablet to 2 #3) 300-30 mg per (two) tablets tabletIndications: by mouth every Status post total 4 to 6 hours left knee as needed for replacement pain. as of this encounter Active [...] encounter Progress Notes Adriana Rizvi MD - 04/23/2017 5:49 PM EST Dictation on: 04/23/2017 5:50 PM by: ADRIANA RIZVI [[id number]] in this encounter Plan of Treatment Health Maintenance Due Date Last Done Comments COLONOSCOPY 1965 HEPATITIS C SCREENING 1965 PAP SMEAR 1965 TETANUS EVERY 10 YR 1965 SEQUENTIAL INFLUENZA VACCINE (#1) 2017 as of this encounter Results XR Knee Left 3 Views (Specify Views in Comments) (04/23/2017 5:51 PM) Specimen Performing Laboratory [facility] Narrative X-ray of the left knee 3 views for postop reveals normal-appearing left total knee replacement in this encounter Visit Diagnoses Diagnosis Status post total left knee replacement - Primary in this encounter Insurance Payer Benefit Plan / Group Subscriber ID Type Phone Address [facility] MANAGED MEDICAID [facility] MEDICAID COMMUNITY PLAN [id number] Home: [address] [place] [phone] [place] [id number] as of this encounter
--- OUTSIDE RECORDS SUMMARY | 2018-07-08 06:09 | XMS RPT_ITS ---
:1965 Author Organization [place] Care Team Providers Name Role Phone KIM DUMONT CNP Admitting Unavailable KIM DUMONT CNP Attending Unavailable KIM DUMONT CNP Primary Care Unavailable ANTONINA PERDUE MD Consulting Unavailable PROVIDER, UNKNOWN Consulting Unavailable PROVIDER, UNKNOWN Consulting Unavailable Roman Owusu Admitting Unavailable Roman Owusu Attending Unavailable Antonina Perdue Primary Care Unavailable Roman Owusu Admitting Unavailable Roman Owusu Attending Unavailable Antonina Perdue Primary Care Unavailable Roman Owusu Admitting Unavailable Roman Owusu Attending Unavailable Antonina Perdue Primary Care Unavailable Roman Owusu Admitting Unavailable Roman Owusu Attending Unavailable Miedel, Antonina E Primary Care Unavailable Dmitri, Dr. Adriana Mata Admitting Unavailable Dmitri, Dr. Adriana Mata Attending Unavailable Dmitri, Dr. Adriana Mata Admitting Unavailable Dmitri, Dr. Adriana Mata Attending Unavailable Dmitri, Dr. Adriana Mata Admitting Unavailable Dmitri, Dr. Adriana Mata Attending Unavailable Tiffanie, Dr. Mason Myles Attending Unavailable Tiffanie, Dr. Mason Myles Admitting Unavailable DuranSkye Admitting Unavailable DuranSyke scott Attending Unavailable ADRIANA CHASE Attending Unavailable MIEDEL, ANTONINA E Primary Care Unavailable CONNIE TORREZ Attending Unavailable MIEDEL, ANTONINA E Primary Care Unavailable SKYE DURAN Attending Unavailable MIEDEL, ANTONINA E Primary Care Unavailable SKYE DURAN Attending Unavailable DURANSKYE Referring Unavailable MIEDEL, ANTONINA E Primary Care Unavailable SKYE DURAN Attending Unavailable SKYE DURAN Referring Unavailable MIEDEL, ANTONINA E Primary Care Unavailable SKYE DURAN Attending Unavailable DURANSKYE Referring Unavailable MIEDEL, ANTONINA E Primary Care Unavailable SKYE DURAN Attending Unavailable DURANSKYE Referring Unavailable MIEDEL, ANTONINA E Primary Care Unavailable ADRIANA CHASE Attending Unavailable MIEDEL, ANTONINA E Primary Care Unavailable Miedel, Antonina Attending Unavailable Miedel, Antonina Primary Care Unavailable PROBLEMS PROBLEMS DATE TYPE CONDITION / CODE ATTENDING STATUS SOURCE 05/22/2018 Unknown I10 - Essential Miedel, Antonina Active [facility] (primary) [facility] hypertension / Hospital I10(ICD-10) Repository 05/22/2018 Unknown E78.00 - Pure Miedel, Antonina Active [facility] hypercholesterolem Community ia, unspecified / Hospital E78.00(ICD-10) Repository 03/24/2018 Admitting Presence of left DMITRI, Active [place] [facility] diagnosis artificial knee ADRIANA CONNOR Three joint / Repository Z96.652(ICD-10) 01/08/2018 Admitting Chest pain, ROGER, Socset. diagnosis unspecified / SKYE Roland R07.9(ICD-10) Repository 10/07/2017 Admitting Impingement DMITRI, Active [facility] diagnosis syndrome of right ADRIANA Roland shoulder / Repository M75.41(ICD-10) 10/07/2017 Admitting Unilateral primary DMITRI, Active [facility] diagnosis osteoarthritis, ADRIANA CONNOR Three right knee / Repository M17.11(ICD-10) 08/06/2017 Principle Encounter for KIM DUMONT Active Buddy Pomdave Diagnosis general adult [facility] examination Repository without abnormal findings / Z0000(ICD-10) PROCEDURES PROCEDURES No Procedure Records FoundRESULTS RESULTS CBC W/DIFF, AUTOMATED Collected: 05/22/2018 Status: F Source: LI 10:[address] [facility] REPOSITORY TYPE CODE TESTS RESULT OUT OF RANGE REFERENCE UNITS LAB L100.1000 4.4-11.0 K/mm3 High WBC 12.3 LAB L100.1200 4.2-5.4 M/mm3 Normal RBC 4.62 LAB L100.1300 12.0-15.0 g/dl Normal HGB 15.0 LAB L100.1400 37-47 % Normal HCT 45.9 LAB L100.1500 81-99 fL High MCV 99.4 LAB L100.1600 27.0-32.0 pg High MCH 32.5 LAB L100.1700 32-36 g/gl Normal MCHC 32.7 LAB L100.1810 11.6-14.6 % Normal RDW CV 14.0 LAB L100.1820 35.1-43.9 fl High RDW SD 50.0 LAB L100.1900 150-450 K/mm3 Normal PLT 406 LAB L100.2000 6.2-12.0 fl Normal MPV 10.1 LAB L100.2100 47-70 % Normal NEUT% 63.2 LAB L100.2200 19-41 % Normal LY% 27.3 LAB L100.2300 0-10 % Normal MONO% 6.6 LAB L100.2400 0-5 % Normal EO% 1.7 LAB L100.2500 0-1 % Normal BASO% 0.4 LAB L100.2550 0.0-0.9 % Normal IM GRAN % 0.800 Result Comment: IG% - Immature Granulocytes (promyelocytes, myelocytes and metamyelocytes) > 1% indicates that a LEFT SHIFT is Present. LAB L100.2620 2.0-7.7 X10 3/uL High Absolute Neut 7.8 LAB L100.2720 0.83-4.51 X10 3/ul Normal Absolute Lymph 3.37 Performed By: #### L100.0100 #### [facility] [address] [place], [place], [address] COMPREHENSIVE METABOLIC Collected: 05/22/2018 Status: F Source: LI [facility] 10:[address] [facility] REPOSITORY TYPE CODE TESTS RESULT OUT OF RANGE REFERENCE UNITS LAB L501.0100 74-106 mg/dL High GLU 108 Result Comment: Fasting Glucose result from 100 to 125 mg/dL suggests IMPAIRED HOMEOSTASIS per A.D.A. criteria. Please note revised GLUCOSE reference range effective 2017. LAB L501.1000 7-18 mg/dL High BUN 21 LAB L501.1100 0.55-1.02 mg/dL Normal CREAT,SERUM 0.96 Result Comment: The validity of the calculated GFR AND GFRAA in patients over 70 years has not been determined. Clinical correlation is essential. LAB L501.1110 >60 mL/min Normal EST GFR 65 Result Comment: Non- GFR Calc LAB L501.1115 >60 mL/min Normal EST GFR - AA 78 Result Comment: GFR Calc LAB L501.1300 10-20 RATIO High BUN/CRE 21.9 LAB L501.1500 6.4-8.2 g/dL T Normal PROT 7.5 LAB L501.1800 3.2-5.0 g/dL Normal ALB 3.2 LAB L501.1950 2.2-4.2 g/dL High GLOB 4.3 LAB L501.2000 0.9-2.4 RATIO Low A/G 0.7 LAB L501.2200 8.5-10.1 mg/dL CA Normal 9.0 LAB L501.4100 15-37 U/L Normal AST 19 LAB L501.4305 45-117 U/L Normal ALK P 79 LAB L501.4405 13-56 U/L Normal ALT 27 LAB L501.4600 0.20-1.00 mg/dL T Normal BILI 0.50 LAB L501.5300 136-145 mmol/L NA Normal 138 LAB L501.5600 3.5-5.1 mmol/L Low K 3.4 LAB L501.5900 98-107 mmol/L CL Normal 102 LAB L501.6100 21.0-32.0 mmol/L Normal CO2 28.0 LAB L501.6200 5-15 Normal GAP 8 Performed By: #### L500.4050, L500.4100 #### [facility] [address] [place], [address] LIPID PROFILE Collected: 05/22/2018 Status: F Source: MCNARY 10:[address] [facility] REPOSITORY TYPE CODE TESTS RESULT OUT OF RANGE REFERENCE UNITS LAB L501.4900 200 mg/dL Normal CHOL 180 Result Comment: <200 mg/dL Desirable 200-240 mg/dL Borderline >240 mg/dL High Risk LAB L501.5000 mg/dL High TRIG 264 Result Comment: The drugs N-Acetylcysteine and Metamizole may falsely depress this assay. Serum Triglycerides Reference Interval Normal <150 mg/dL Borderline high 150 - 199 mg/dL High 200 - 499 mg/dL Very High > or = 500 mg/dL LAB L501.6400 mg/dL Normal HDL 42 Result Comment: The drugs N-Acetylcysteine and Metamizole may falsely depress this assay. Reference Range HDL <40 mg/dL Low HDL Cholesterol HDL >or= 60 mg/dL High HDL Cholesterol LAB L501.6500 0-130 mg/dL Normal LDL 85 LAB L501.6600 5-40 mg/dL High VLDL 53 Performed By: #### L500.4050, L500.4100 #### [facility] [address] [place], [address] XR KNEE LEFT 3 VIEWS Observed: 03/24/2018 Status: F Source: [facility] (SPECIFY VIEWS IN 12:00 AM THREE REPOSITORY COMMENTS) X-ray of the left knee 3 views for 1 year postop reveals normal-appearing left total knee replacement Dictated by: ADRIANA CAHSE on SatMar 24, 2018 5:11:01 PM EDT Transcribed by: ADRIANA CHASE on SatMar 24, 2018 5:11:01 PM EDT Finalized by: ADRIANA CHASE on SatMar 24, 2018 5:11:01 PM EDT NM MYOCARDIAL Observed: 01/08/2018 Status: F Source: [facility] PERFUSION SINGLE - 7:57 AM THREE REPOSITORY STRESS ONLY Order Comment: ED PATIENT RESULTS TO GO TO DR BONDS PCP Reason for exam?:c/p Injury/Trauma or Illness?:Illness/Other How long have you had these symptoms (acute/chronic)?:Unknown Type of Exam?:Unknown Additional signs and symptoms?:c/p Nuclear Report Patient: ALISSA APPIAH [facility] Rec#: [id number] (Age): 1965(52y) Height: 167.6(cm)/65(in Study Date: 01/08/2018 [...] was followed using Tc-99m tetrofosmin (Myoview) injected intravenously. For the stress portion of [...] Electronically signed at 01/08/2018 12:38:12 by: Nohemi Jaquez MD Dictated by: NOHEMI JAQUEZ on SatJan 08, 2018 12:38:12 PM EDT Transcribed by: NOHEMI JAQUEZ on SatJan 08, 2018 12:38:12 PM EDT Finalized by: NOHEMI JAQUEZ on SatJan 08, 2018 12:38:12 PM EDT ED CARDIAC TROPONIN-I Collected: 01/05/2018 Status: F Source: [facility] 3:00 PM [facility] REPOSITORY TYPE CODE TESTS RESULT OUT OF RANGE REFERENCE UNITS LAB EDCTNI < 45 ng/L Normal ED Cardiac < 15 Troponin-I Result Comment: Elevation of troponin indicates some degree of myocardial necrosis but unless there is a significant rise and/or fall (if elevated) identified, it unlikely that an acute event has taken place Samples from patients routinely receiving high dose biotin therapy (100-300 mg/day) may show falsely decreased results. Please correlate clinically. Performed By: #### EDCTNI #### Unless otherwise noted, all testing performed by [address] [place], [place] [address] CLIA: [id number] Business Process Coordinator: Mino Edmond, M.D. CBC W/O DIFF Collected: 01/05/2018 Status: F Source: [facility] 12:54 PM [facility] REPOSITORY TYPE CODE TESTS RESULT OUT OF REFERENCE UNITS RANGE LAB WBC 3.4-10.6 K/mcL WBC High 13.1 LAB RBC 3.7-5.0 M/mcL RBC 4.65 LAB HGB 11.6-15.4 g/dL Hemoglobin 15.3 LAB HCT 34.4-44.8 % Hematocrit 44.6 LAB MCV 82.6-98.9 FL MCV 95.8 LAB MCH 27.9-33.9 pg MCH 32.9 LAB MCHC 33.1-35.1 g/dL MCHC 34.3 LAB RDW 10.0-14.4 % RDW 14.3 LAB PLT 162-402 K/mcL Platelet Count 348 LAB MPV 7.0-10.6 FL MPV 7.6 Performed By: #### PT, PTT, SEDR, EDCTNI, CBCWOD, CHEM8 #### Unless otherwise noted, all testing performed by [place] [address] [place], [place] [address] CLIA: [id number] Business Process Coordinator: Mino Pruitt M.D. PROTIME Collected: 01/05/2018 Status: F Source: [facility] 12:54 PM [facility] REPOSITORY TYPE CODE TESTS RESULT OUT OF RANGE REFERENCE UNITS LAB PT. 11.8-14.3 Seconds Normal Protime 12.7 LAB INR Normal INR 0.98 Result Comment: The [employer] recommended therapeutic range for Warfarin (Coumadin) therapy goals: PROPHYLAXIS/TREATMENT of: INR Venous Thrombosis, Pulmonary Embolism 2.0-3.0 Prevention of VTE (Orthopedic Surgery) 2.0-3.0 Atrial Fibrillation 2.0-3.0 Myocardial Infarction 2.0-3.0 Mechanical Prosthetic Heart Valves (Aortic position) 2.0-3.0 Mechanical Prosthetic Heart Valves (Mitral Position) 2.5-3.5 [employer] evidence-based clinical practice guidelines. CHEST. 2012 (9th ed) Performed By: #### PT, PTT, SEDR, EDCTNI, CBCWOD, CHEM8 #### Unless otherwise noted, all testing performed by [place] [address] CLIA: [id number] Business Process Coordinator: Mino Pruitt M.D. PARTIAL THROMBOPLASTIN Collected: 01/05/2018 Status: F Source: [facility] TIME 12:54 PM [facility] REPOSITORY TYPE CODE TESTS RESULT OUT OF REFERENCE UNITS RANGE LAB PTT 23.0-34.0 Seconds Partial Normal Thromboplastin Time 29 Result Comment: Suggested therapeutic range for PTT is 68-104 sec. Performed By: #### PT, PTT, SEDR, EDCTNI, CBCWOD, CHEM8 #### Unless otherwise noted, all testing performed by [place] [address] CLIA: [id number] Business Process Coordinator: Mino Pruitt M.D. ED CARDIAC TROPONIN-I Collected: 01/05/2018 Status: F Source: [facility] 12:54 [facility] TYPE CODE TESTS RESULT OUT OF RANGE REFERENCE UNITS LAB EDCTNI < 45 ng/L Normal ED Cardiac < 15 Troponin-I Result Comment: Elevation of troponin indicates some degree of myocardial necrosis but unless there is a significant rise and/or fall (if elevated) identified, it unlikely that an acute event has taken place Samples from patients routinely receiving high dose biotin therapy (100-300 mg/day) may show falsely decreased results. Please correlate clinically. Performed By: #### PT, PTT, SEDR, EDCTNI, CBCWOD, CHEM8 #### Unless otherwise noted, all testing performed by [place] [address] CLIA: [id number] Business Process Coordinator: Mino Pruitt M.D. BASIC METABOLIC PANEL Collected: 01/05/2018 Status: F Source: [facility] 12:54 PM [facility] REPOSITORY TYPE CODE TESTS RESULT OUT OF REFERENCE UNITS RANGE LAB GLU 70-99 mg/dL High Glucose 119 Result Comment: This test result might be falsely depressed or falsely elevated on samples drawn from patients taking Sulfasalazine and Sulfapyridine. Venipuncture should occur prior to taking either of these drugs. LAB BUN 8-25 mg/dL BUN 13 LAB CREA 0.40-1.10 mg/dL Creatinine 1.09 LAB eGFR >60 ml/min/1.73s Low q.m eGFR,NonAfrican-Am erican 53 Result Comment: Non- GFR Calc eGFR is an estimated Glomerular Filtration Rate based on the value of the patient's serum creatinine. In outpatients, eGFR should be used as a helpful tool in screening for CKD. In inpatients or patients with acute renal failure, eGFR represents the GFR at the moment of the draw and should be used with caution. LAB eGFRB ml/min/1.73sq.m eGFR, -Syrian >=60 Result Comment: GFR Calc LAB CALCM 8.4-10.2 mg/dL Calcium 8.8 LAB NA 135-145 mmol/L Sodium 142 LAB K 3.5-5.1 mmol/L Low Potassium 3.4 LAB CL 98-108 mmol/L Chloride 104 LAB CO2 21-32 mmol/L CO2 28 Performed By: #### PT, PTT, SEDR, EDCTNI, CBCWOD, CHEM8 #### Unless otherwise noted, all testing performed by [place] [address] CLIA: [id number] Business Process Coordinator: Mino Pruitt M.D. SED RATE Collected: 01/05/2018 Status: F Source: [facility] 12:54 PM [facility] REPOSITORY TYPE CODE TESTS RESULT OUT OF RANGE REFERENCE UNITS LAB SEDR 0-20 MM/hr. Normal Sed Rate 8 Performed By: #### PT, PTT, SEDR, EDCTNI, CBCWOD, CHEM8 #### Unless otherwise noted, all testing performed by [place] [address] CLIA: [id number] Business Process Coordinator: Mino Pruitt M.D. CHEST (ONE VIEW Observed: 01/05/2018 Status: F Source: [facility] ONLY) 12:50 PM [facility] REPOSITORY Final Report Accession No: [id number] Performed: Jan 05 2018 12:50PM Examination: CHEST (ONE VIEW ONLY) EXAMINATION: CHEST (ONE VIEW ONLY) [id number] CLINICAL HISTORY: 52-year-old female with history of chest pain. COMPARISON: None available. FINDINGS/IMPRESSION: There is no definite acute cardiopulmonary process. Elevation left diaphragm. Lungs clear of mass or consolidation. Calcified granuloma right upper lobe. Heart size normal. No pulmonary edema. Bones are grossly intact. Interpreting Physician: RICKEY TOSCANO M.D. Trans: mad : cc: XR CHEST 2 VIEWS Observed: 12/19/2017 Status: F Source: [facility] 1:33 PM [facility] REPOSITORY Exam Date/Time: 12/19/2017 13:33 EDT Reason for Exam: Shortness of breath (SOB) Report STUDY: XR Chest 2 Views; 12/19/2017 1:33 pm INDICATION: Shortness of breath (SOB). COMPARISON: None. ACCESSION NUMBER(S): [id number] ORDERING CLINICIAN: Roman Owusu FINDINGS: PA and lateral views of the chest were obtained. No focal infiltrate, pleural effusion or pneumothorax is identified. The cardiac silhouette is within normal limits for size. Mild discogenic degenerative changes are seen throughout the thoracic spine. IMPRESSION: No focal infiltrate or pneumothorax. FINAL REPORT Dictated: 12/19/2017 2:08 pm Ck Mallory MD Signed (Electronic Signature): 12/19/2017 2:08 pm Signed by: Ck Mallory MD Technologist: DOMENICO CT LOWER EXT W/O Observed: 12/06/2017 Status: F Source: [facility] CONTRAST 1:40 PM [facility] REPOSITORY Final Report Accession No: [id number] Performed: Dec 06 2017 1:40PM Examination: RIGHT CT LOWER EXT W/O CONTRAST EXAM: CT LOWER EXT W/O CONTRAST RIGHT. CLINICAL STATEMENT: Knee osteoarthritis. Presurgical robotic planning. COMPARISON: 02/15/2017 radiographs. TECHNIQUE: Axial CT imaging of the right hip, knee, and ankle without contrast.. Dose reduction techniques were achieved by using automated exposure control and/or adjustment of mA and/or kV according to patient size and/or use of iterative reconstruction technique. FINDINGS: RIGHT KNEE: No acute osseous abnormality. Medial compartment joint space narrowing. Moderate tricompartmental marginal osteophytes. Moderate subchondral sclerosis involving the weightbearing surfaces of the medial and lateral knee compartments. Lateral patellar tilt. Small joint effusion. Surrounding muscle bulk appears normal. RIGHT HIP: No acute osseous abnormality. 9 mm sclerotic density at the anterior acetabulum likely relates to a bone island. No findings to suggest femoral head avascular necrosis. Anatomic joint alignment. Mild hip joint space narrowing without significant degenerative changes. No evidence of joint effusion. Surrounding muscle bulk appears normal. RIGHT ANKLE: No acute osseous abnormality. No talar dome defects. Anatomic joint alignment. Surrounding soft tissues appear unremarkable. IMPRESSION: 1. Right knee tricompartmental osteoarthritis with small joint effusion. 2. No significant degenerative changes of the right hip and ankle. Interpreting Physician: WINIFRED LLANOS D.O. Trans: jim : cc: BALJINDER Collected: 10/09/2017 Status: F Source: [facility] 5:31 PM [facility] REPOSITORY TYPE CODE TESTS RESULT OUT OF RANGE REFERENCE UNITS LAB 77003773(L 70-99 mg/dL OINC) High Glucose Lvl 118 LAB 88329582(L 8.4-10.2 mg/dL OINC) Calcium Normal Lvl 9.0 LAB 11317164(L 136-145 mEq/L OINC) Sodium Normal Lvl 137 LAB 75123732(L 3.5-5.1 mEq/L OINC) Normal Potassium Lvl 4.6 LAB 83884627(L 98-107 mEq/L OINC) Chloride Normal 103 LAB 06070267(L 24.0-30.0 mEq/L OINC) CO2 Normal 25.1 LAB 61275122(L 7-18 mg/dL OINC) High BUN 28 LAB 8985183(LO 0.6-1.3 mg/dL INC) Normal Creatinine 0.9 LAB 75977107(L 42-121 Int._Unit/ OINC) L Alk Phos Normal 50 LAB 27869463(L 0.2-1.0 mg/dL OINC) Bili Normal Total 0.5 LAB 37772248(L 3.2-5.0 G/DL OINC) Albumin Normal Lvl 3.9 LAB 78485026(L 6.4-8.3 G/DL OINC) Total Normal Protein 7.3 LAB 36705080(L 10-40 Int._Unit/ OINC) L ALT Normal 18 LAB 93935740(L 10-42 Int._Unit/ OINC) L AST Normal 22 LAB 49111096(L 5.4-30.0 ratio OINC) High BUN/Creat Ratio 31.1 LAB 00085033(L 2.0-4.0 G/DL OINC) Globulin Normal 3.4 LAB 06001900(L 1.1-1.9 ratio OINC) A/G Normal Ratio 1.1 Performed By: #### [id number] #### [facility] [address] [place] [address] CBC W/ AUTO DIFF Collected: 10/09/2017 Status: F Source: [facility] [address] [place] [address] REPOSITORY TYPE CODE TESTS RESULT OUT OF RANGE REFERENCE UNITS LAB 66657652(L 3.6-11.0 E3/mcL OINC) High WBC 17.9 LAB 60627861(L 3.90-5.40 E6/mcL OINC) Normal RBC 4.44 LAB 95039904(L 12.0-16.0 G/DL OINC) Normal Hgb 14.4 LAB 87506126(L 36.0-48.0 % OINC) Normal Hct 43.1 LAB 00522876(L 11.5-14.5 % OINC) Normal RDW 14.5 LAB 07711101(L 27.0-31.0 pg OINC) High MCH 32.3 LAB 71664997(L 33.0-37.0 G/DL OINC) Normal MCHC 33.3 LAB 70701920(L 78.0-100.0 fL OINC) Normal MCV 97.0 LAB 65835345(L 7.4-11.0 fL OINC) Normal MPV 9.2 LAB 84037420(L 130-400 E3/mcL OINC) Normal Platelet 359 Performed By: #### [id number] #### [facility] [address] [place] [address] MANUAL DIFF Collected: 10/09/2017 Status: F Source: [facility] [address] [place] [address] REPOSITORY Order Comment: Order Added by Discern Expert. TYPE CODE TESTS RESULT OUT OF RANGE REFERENCE UNITS LAB 81509680(L 37-75 % OINC) Normal Segs Man 72 LAB 81609825(L 0-1 OINC) High Band Man 6 LAB 43081101(L 14-48 % OINC) Normal Lymph Man 18 LAB 85761336(L 1-11 % OINC) Normal Monocyte Man 4 LAB 18861801(L 0-5 % OINC) Normal Eos Man 0 LAB 71761002(L 0-1 % OINC) Normal Basophil Man 0 LAB 67031628(L OINC) Normal RBC Morph NORMAL Performed By: #### [id number] #### TRISHA [facility] [place] [address] ZZPLT MORPH Collected: 10/09/2017 Status: F Source: [facility] [address] [place] [address] REPOSITORY TYPE CODE TESTS RESULT OUT OF RANGE REFERENCE UNITS LAB 56019072(L OINC) Normal Platelet NORMAL Estimate LAB 38151614(L OINC) Normal Platelet Morph NORMAL Performed By: #### [id number] #### TRISHA [facility] [address] [place] [address] .MANUAL ABS Collected: 10/09/2017 Status: F Source: [facility] [address] [place] [address] REPOSITORY Order Comment: Order Added by Discern Expert. TYPE CODE TESTS RESULT OUT OF RANGE REFERENCE UNITS LAB 13177913(L 1.4-6.5 10x3/ OINC) High Segs Abs Man 12.9 LAB 65171665(L 1.2-3.4 10x3/ OINC) Normal Lymph Abs Man 3.2 LAB 29038109(L 0.0-0.7 10x3/ OINC) Normal Isabella Abs Man 0.7 LAB 80666771(L 0.0-0.5 10x3/ OINC) Normal Eos Abs Man 0.0 LAB 06869376(L 0.0-0.2 10x3/ OINC) Normal Basophil Abs 0.0 Man Performed By: #### [id number] #### TRISHA [facility] [place] [address] EGFR Collected: 10/09/2017 Status: F Source: [facility] [address] [place] [address] REPOSITORY Order Comment: Order added by Discern Expert. TYPE CODE TESTS RESULT OUT OF RANGE REFERENCE UNITS LAB 38585350(LO mL/min/1.73 INC) m2 Normal eGFR >60 LAB 27622027(LO mL/min/1.73 INC) m2 Normal eGFR AA >60 Performed By: #### [id number] #### [facility] [address] [place] [id number] GLUCOSE POC Collected: 10/09/2017 Status: F Source: [facility] 4:51 PM [facility] REPOSITORY TYPE CODE TESTS RESULT OUT OF REFERENCE UNITS RANGE LAB 68865337(LO 70-99 mg/dL INC) High Glucose POC 134 Performed By: #### [id number] #### TRISHA POC Subsection [address] [place] [id number] ALLERGIES ALLERGIES DATE TYPE / CODE NAME / CODE REACTION SEVERITY SOURCE 10/29/2011 DRUG AZITHROMYCIN Nausea Med [facility] INGREDI/419 Three Repository 660543(SN ED CT) Drug/505705 Zithromax TRI[facility]PRAKASH N[facility] ZITHROMAX/73670786( Moderate Buddy Pomerene Allergy/416 RXNORM) ([facility] 715221(SNOM [facility] ED CT) (Qualifier Repository Value) ENCOUNTERS ENCOUNTERS ADMIT/DISCHARGE ACCOUNT NUMBER ADMITTING ENCOUNTER LOCATION SOURCE CLASS 05/22/2018 [id number] Ambulatory [facility] ding:BFHLAB Repository 03/24/2018/03/24/20 [id number] Ambulatory Building:[place] [address] SPORTSMEDAMB Three ER Repository 01/08/2018/01/09/20 [id number] Ambulatory Building:[place] [address] HVPMCGLESSNE Three RNM Repository 01/08/2018/01/09/20 [id number] Ambulatory Building:[place] [address] HVPMCGLESSNE Three RNM Repository 01/08/2018/01/09/20 [id number] Ambulatory Building:[place] [address] K Three Repository 01/08/2018 [id number] Roger, [facility] Repository 01/08/2018/01/09/20 [id number] Ambulatory Building:[place] [address] HVPMCGLESSNE Three RNM Repository 01/07/2018 [id number] [facility] [address] Repository 01/05/2018/01/06/[id number] Tiffanie Emergency [address] lding:A1E [place] [facility] [place] DeptRoom: [facility] A1E F9PWPad: Repository A1E [id number] 01/02/2018 [id number] Dmitri, [facility] Dr. Adriana Jackson [facility] Repository 12/19/2017/12/20/[id number] ding:[facility] Repository 12/19/2017/12/20/[id number] ding:CD:[employer] [id number]: Repository CD:[id number] 12/19/2017 [id number] Ambulatory [address] [place] [address] Repository 12/10/2017 [id number] [facility] Dr. Adriana Jackson [facility] Repository 12/06/2017 [id number] [facility] Dr. Adriana Jackson [facility] Repository 10/30/2017 [id number] Ambulatory Building:[facility] ORTHOSTUMBO2 Three Repository 10/09/2017/10/10/[id number] ding:[facility] Repository 10/09/2017/10/10/[id number] ding:CD:[place] [id number]: Repository CD:[id number] 10/07/2017/10/08/19 [id number] Ambulatory Building:[facility] 18 SPORTSMEDAMB Three ER Repository 08/06/2017 [id number] JULIA, Ambulatory Buddy [facility] Repository PAYERS PAYERS ENCOUNTER GUARANTOR PAYER SUBSCRIBER SOURCE 05/22/2018 Teresa Primary Insurance:[facility] Teresa [address] Number: : [id number] Hospital [address]Tnb: [phone]) [id number] Repository [phone] (HP) Date:9650-25-04LX [address] [place] [address] 95141RT: 05/22/2018 Secondary NOT GIVENUNK Tracy Insurance:SELF PAY [facility]: Effective Repository Date:2018-05-22 03/24/2018 TERESA [facility] Three [id number] BOX MEDICAIDPolicy : [place] Number: [id number]: (999) [id number] [address] (HP) Date:7542-94-71LZ [address] [place] [address] [place] [address]Puq: [phone]: [phone] (HP) 01/08/2018 TERESA Primary Insurance:[facility]: MANAGED [facility] Three [id number] BOX MEDICAIDPolicy : [place] Number: [id number]: (999) [id number] [address] (HP) Date:6632-76-51BN [address] [place] [address] [place] [address]Rxg: [phone]: [phone] (HP) 01/08/2018 TERESA Primary Insurance:[facility]: MANAGED [facility] Three [id number] BOX MEDICAIDPolicy : [place] Number: [id number]: (999) [id number] [address] (HP) Date:7713-14-64GB [address] [place] [address] [place] [address]Fxn: [phone]: [phone] (HP) 01/08/2018 TERESA Primary Insurance:[facility]: MANAGED [facility] Three [id number] BOX MEDICAIDPolicy : Repository [place] Number: [id number]: (999) [id number] [address] (HP) Date:1718-16-91YF [address] [place] [address]Ltb: [phone]: [phone] (HP) 01/08/2018 Primary TERESA [facility] Insurance:[facility] [address]Policy : Gervais Number: [id number] Hospitals [id number] BOX Repository Date:Plan SUPERIOR, Name:[facility] Box [place] [address]Csg: [address] [place] [address]SC: [phone] ([phone] 01/08/2018 TERESA Primary Insurance:[facility]: MANAGED [facility] Three [id number] BOX MEDICAIDPolicy : Repository [place] Number: [id number] [address]Bhc: (999) [id number] [address] (HP) Date:7501-51-97JK [address]OX [facility] [place] [address]Nlw: [address]ZA: [phone] (HP) 01/07/2018 TERESA Primary Insurance:[facility]: MANAGED [facility] Three [id number] BOX MEDICAIDPolicy : Repository [place] Number: [id number] [address]Igu: ([phone]) [id number] [phone] (HP) Date:5965-43-40NZ BOX [facility] [place] [phone]: 01/05/2018 Primary TERESA [facility] Insurance:[facility] [place] and [address]Policy : [place] Number: [id number] [facility] [id number] BOX Repository Date:Plan [place], Name:HealthPO Box [place] [address]Uiz: [address] [place] [address]IK: [phone] ([phone] 01/02/2018 Primary TERESA [facility] Insurance:[facility] and [address]Policy : [place] Number: [id number] [facility] [id number] BOX Repository Date:Plan [facility], Name:HealthPO Box [place] [address]Ueb: [address] [place] [address]KB: [phone] 12/19/2017 TERESA K Primary TERESA K Jainism [facility] [id number] BOX HEALTHCAREPolicy : System [place], [place] Number: Effective [id number] Repository [address]Dei: Date:2017-12-19 - BOX (HP) [id number] [facility], Name:CD:[id number] [address] [address]Ijw: [address]MY: [phone] (HP) (WP) 12/19/2017 TERESA K Primary TERESA K Jainism [facility] Insurance:[facility] [id number] BOX HEALTHCAREPolicy : System [place], [place] Number: Effective [id number] Repository [address]Yvn: Date:2017-12-19 BOX (HP) [id number] [facility], Name:CD:[id number] [address] [address]Apc: [phone]: [phone] (HP) (WP) 12/19/2017 TERESA K Primary TERESA K [facility]: Insurance:[facility] [id number] [facility] Community : Repository [address] [place] [address] PlanPolicy Number: [id number]: (769) [id number] [phone] (HP) Date:Plan [place], Name:Health [address] [id number]: [address]WW: [phone] (HP) 12/10/2017 Primary [facility]ESA [facility] Insurance:[facility] 8207Policy : [place] Number: [id number] Hospitals [id number] BOX Repository Date:Plan [facility], Name:[facility] [address]Yid: [address] [place] [address] 314[address]BO: [phone] 12/06/2017 Primary [facility]ESA [facility] Insurance:[facility] 8207Policy : [place] Number: [id number] Hospitals [id number] BOX Repository Date:Plan [facility], Name:HealthPO [address] [place] [address]Jrq: [address] [place] [address]16[address]OY: [phone] 10/30/2017 TERESA Primary Insurance:[facility]: [facility] [id number] [facility] MEDICAIDPolicy : Repository [address] [place] [address] Number: [id number]: (251) [id number] [phone] (HP) Date:[id number], [address] [place] [address] [place] [address]KU: 10/09/2017 TERESA K Primary TERESA K formerly [facility]: Insurance:[facility] [id number] [facility] HEALTHCAREPolicy : System [place], [place] Number: Effective [id number] Repository [address]Iwl: Date:2017-10-09 - BOX (HP) [id number] [place], Name:CD:[id number] [address] [address]Aor: 59[address]WD: [phone] (HP) (WP) 10/09/2017 TERESA K Primary TERESA [facility]: Insurance:[facility] [id number] [facility] HEALTHCAREPolicy : System [place], [place] Number: Effective [id number] Repository [address]Jyh: Date:2017-10-09 - BOX (HP) [id number] [place], Name:CD:[id number] [address] [address]Tii: [address]JS: [phone] (HP) (WP) 10/07/2017 TERESA Primary Insurance:[facility]: [facility] [id number] BOX MEDICAIDPolicy : Repository [place], [place] Number: [id number]: (965) [id number] [phone] (HP) Date:4825-66-23SO [address] [place], [place] [phone]:
--- OUTSIDE RECORDS SUMMARY | 2018-07-08 06:09 | XMS RPT_ITS | Summary of Care ---
:1965 Author Organization [facility] Address [address] [place] [address] Phone Care Team Providers Name Role Phone Antonina Perdue MD Primary Care Provider Unavailable Encounter Details Date Type Department Care Team Description 03/27/2017 Hospital Encounter [facility] Arnaud Rizvi [address] Erik Portillo MD [place], [place] [address] [address] [place] [address] Allergies Active Allergy Reactions Severity Noted Date Comments Azithromycin GI Intolerance Medium 10/29/2011 Other reaction(s): Nausea Only Other reaction(s): Vomiting as of this encounter Medications Prescription Sig. Disp. Refills Start Date End Date Status lisinopril-hydrochloro Take by mouth. Active thiazide (PRINZIDE,ZESTORETIC) 20-25 mg per tablet metoprolol tartrate Take 25 mg by Active (LOPRESSOR) 25 MG mouth 2 (two) tablet times a day . atorvastatin (LIPITOR) Take 10 mg by Active 10 MG tablet mouth daily. albuterol 90 Inhale 2 puffs Active mcg/actuation inhaler every 6 (six) hours as needed for wheezing. oxyCODONE-acetaminophe Take 1 (one) 60 tablet 0 03/25/2017 04/04/2017 Active n (PERCOCET) 5-325 mg tablet by mouth per tabletIndications: every 4 (four) Status post total left hours as needed knee replacement for pain. as of this encounter Active Problems [...] Date Type Specialty Care Team Description 04/22/2017 Follow-Up Sports Medicine Arnaud Rizvi MD [address] [place] [address] [phone] Health Maintenance Due Date Last Done Comments COLONOSCOPY 1965 HEPATITIS C SCREENING 1965 PAP SMEAR 1965 TETANUS EVERY 10 YR 1965 SEQUENTIAL INFLUENZA VACCINE (#1) 2017 as of this encounter Insurance Payer Benefit Plan / Group Subscriber ID Type Phone Address [facility] MANAGED MEDICAID [employer] MEDICAID COMMUNITY PLAN [id number] as of this encounter
== END ==
PROVIDERS: Family Provider Family Medicine; PCP Family Medicine; Visit Provider Family Medicine
DX: I10 Essential (primary) hypertension (principal); E78.00 Pure hypercholesterolemia, unspecified
CPT/HCPCS: 36415; 80053; 80061; 85025

== ENCOUNTER → 2018-12-16 | Outpatient (CLI) | payer MEDICARE, SELFPAY ==
[2018-11-11 14:45] VITALS: BMI 39.9
--- NOTE | 2018-12-16 13:47 | BI_ITS ---
MAMMOGRAPHY - BILATERAL DIAGNOSTIC REASON FOR EXAM: Female, 53 years old. Asymmetrical right breast tissue. PERTINENT HISTORY: Non-contributory. TECHNIQUE: Digital bilateral breast naseem (3D mammographic acquisition) in the CC and MLO projections. 2-D mediolateral oblique (MLO) and craniocaudad (CC) views of both breasts were obtained. CAD: Full Field Digital Mammography with Computer Added Detection was performed. COMPARISON: Comparison is made with prior examination dated October 27, 2018. FINDINGS: Breast Composition: There are scattered areas of fibroglandular density. There are no dominant masses or suspicious calcifications. No other significant abnormalities are identified. There has been no significant change since the prior study. BI/DIAG MAMM W/CAD, BILAT IMPRESSION: Stable bilateral diagnostic mammogram. Correlation with ultrasound is recommended. ASSESSMENT CATEGORY: BIRADS Category 0: Incomplete. Need additional imaging evaluation. A letter regarding these results will be sent to the patient by the facility within 30 days. Approximately 10% of breast cancers are not detected by mammography. A normal mammogram should not delay biopsy of a clinically suspicious abnormality. Electronically Signed: Haroon Acevedo, at 15:41 EDT , Service support ,
--- NOTE | 2018-12-16 14:38 | US_ITS ---
STUDY: ULTRASOUND BREAST - RIGHT REASON FOR EXAM: Female, 53 years old. Abnormal screening mammogram. TECHNIQUE: Axial and longitudinal images of the RIGHT breast were performed with a high resolution ultrasound transducer. COMPARISON: Comparison is made with prior mammogram done earlier today. FINDINGS: RIGHT Breast: A cluster of small cysts is seen at the 10:00 position of the breast at 4 cm from nipple. Adjacent to the cluster of cysts, there are dilated ducts. US/Breast Limited Unilateral IMPRESSION: Dilated ducts and cluster of small cysts at the 10:00 position of the breast at 4 cm from the nipple. ASSESSMENT CATEGORY: BIRADS Category 2: Benign. A letter regarding these results will be sent to the patient by the facility within 30 days. Electronically Signed: Haroon Acevedo, at 16:01 EDT , Service support ,
== END | disposition home or self-care (01) ==
PROVIDERS: Family Provider Family Medicine; PCP Family Medicine; Referring Provider Surgery; Visit Provider Surgery
DX: R92.8 Other abnormal and inconclusive findings on diagnostic imaging of breast (principal)
CPT/HCPCS: 76642; 77066

== ENCOUNTER → 2019-12-31 11:56 | Outpatient (CLI) | payer MEDICARE, SELFPAY ==
[2018-11-11 14:45] VITALS: BMI 39.9
--- NOTE | 2019-12-31 11:57 | BI_ITS ---
MAMMOGRAPHY - BILATERAL SCREENING 3-D TOMOSYNTHESIS REASON FOR EXAM: Female, 54 years old. Routine screening PERTINENT HISTORY: FAM HX MOTHER AGE 60S. TECHNIQUE: 2-D mammograms and 3-D Tomosynthesis of the breast (s) were performed. CAD was performed. COMPARISON: 12/16/2018 FINDINGS: The breast composition is composed of scattered fibroglandular density. Scattered benign calcifications are seen. No dense spiculated masses or suspicious microcalcifications are identified. No architectural distortion is identified. There is no skin thickening or retraction. More dense fibroglandular tissue noted in the right breast than the left. BI/SCREEN MAMM (CAD) W/CRISTOFER BILAT IMPRESSION: No mammographic signs of malignancy. Routine yearly mammograms recommended. ASSESSMENT CATEGORY: BIRADS Category 2: Benign. A letter regarding these results will be sent to the patient by the facility within 30 days. FOLLOW UP RECOMMENDATION: Yearly follow up mammogram recommended. (A) Approximately 10% of breast cancers are not detected by mammography. A normal mammogram should not delay biopsy of a clinically suspicious abnormality. Electronically Signed: Samuel Love MD at 12:55 EDT , Service support ,
== END ==
PROVIDERS: PCP Family Medicine; Referring Provider Surgery; Visit Provider Surgery
DX: Z12.31 Encounter for screening mammogram for malignant neoplasm of breast (principal); R92.8 Other abnormal and inconclusive findings on diagnostic imaging of breast
CPT/HCPCS: 77063; 77067

== ENCOUNTER → 2021-06-08 | Outpatient (CLI) | payer MEDICARE, SELFPAY ==
[2021-06-13 16:08] LABS: Age Gdln ACOG Testing 30-65 (.)
[2021-06-13 18:17] LABS: HPV APTIMA, High Risk Negative (Negative); HPV Reflexed? YES, CHARGE PATIENT
== END | disposition home or self-care (01) ==
PROVIDERS: PCP Family Medicine; Visit Provider Family Medicine
DX: Z01.419 Encounter for gynecological examination (general) (routine) without abnormal findings (principal); Z12.4 Encounter for screening for malignant neoplasm of cervix
CPT/HCPCS: 87624; 88175; G0145

== ENCOUNTER → 2022-01-25 | Outpatient (CLI) | payer MEDICARE, MEDICAID, SELFPAY ==
[2022-01-25 10:59] LABS: Hematocrit 43.6 % (37-47); Hemoglobin 14.7 g/dL (12.0-15.0); Mean Corp Hgb Conc 33.7 g/dL (32-36); Mean Corpuscular Hgb 32.5 pg (27.0-32.0); Mean Corpuscular Volume 96.5 fL (81-99); Mean Platelet Vol. 9.3 fl (6.2-12.0); Platelet Count 348 K/mm3 (150-450); RBC Distribution Width CV 12.9 % (11.6-14.6); RBC Distribution Width SD 45.5 fl (35.1-43.9); Red Blood Count 4.52 M/mm3 (4.2-5.4); White Blood Count 11.8 K/mm3 (4.4-11.0)
--- NOTE | 2022-01-25 11:01 | US_ITS ---
STUDY: ABDOMINAL ULTRASOUND - RIGHT UPPER QUADRANT REASON FOR VISIT: Female, 56 years old . History of gallstones. TECHNIQUE: Ultrasound evaluation of the right upper quadrant was performed with real-time and static nair-scale imaging. TECHNICAL QUALITY: Adequate. COMPARISON: None. FINDINGS: Liver: The liver is enlarged and measures 18.5 cm. There is increased echogenicity consistent with fatty infiltration. Focal fatty sparing is seen in the region of the lata hepatis. The bile ducts are within normal limits. There is hepatic color flow. The direction of portal flow is hepatopetal. There is no demonstrated mass lesion. Gallbladder: Normal distended gallbladder. The gallbladder wall measures 2 mm. There is a negative sonographic Leigh''s sign. There is no pericholecystic fluid. There is a solitary echogenic gallstone within the gallbladder. There is evidence of adenomyosis of the gallbladder wall. Common Bile Duct (C.B.D.): The common bile duct measures 4 mm. Pancreas: Normal size of the head, body and tail of the pancreas. There is increased echogenicity of the pancreas. There is no demonstrated pancreatic mass or cyst. Right Kidney: Normal size of the right kidney. The right kidney measures 10.7 cm x 4.9 cm x 5 cm. Normal renal cortex. The right cortex measures 1 cm. There is no demonstrated renal mass or cyst. There is no right hydronephrosis. US/Gallbladder IMPRESSION: Hepatomegaly and fatty infiltration of the liver. Solitary gallstone and adenomyomatosis of the gallbladder wall. Electronically Signed: Haroon Acevedo MD at 12:15 EDT ,
[2022-01-25 11:37] LABS: ALB/GLOB Ratio 0.8 RATIO (0.9-2.4); AST(SGOT) 16 U/L (15-37); Alanine Aminotransfer ALT/SGPT 28 U/L (13-56); Albumin, Serum 3.3 g/dL (3.2-5.0); Alkaline Phosphatase 69 U/L (45-117); Anion Gap 6 (5-15); BUN 19 mg/dL (7-18); Calcium,Total 8.8 mg/dL (8.5-10.1); Chloride 104 mmol/L (98-107); Creatinine, Serum 1.19 mg/dL (0.55-1.02); EST Glomerular Filtration Rate 50 mL/min (>60); Est Glom Filt Rate - Afr Amer 60 mL/min (>60); Globulin 3.9 g/dL (2.2-4.2); Glucose 112 mg/dL (74-106); Protein, Total 7.2 g/dL (6.4-8.2); Sodium Level 140 mmol/L (136-145)
== END | disposition home or self-care (01) ==
LOC: US 10:59
PROVIDERS: PCP Family Medicine; Referring Provider Surgery; Visit Provider Surgery
DX: K80.20 Calculus of gallbladder without cholecystitis without obstruction (principal)
CPT/HCPCS: 36415; 76705; 80053; 85027

== ENCOUNTER 2022-02-09 10:11 | Day surgery (SDC) | payer MEDICARE, MEDICAID, SELFPAY ==
--- NOTE | 2022-02-06 07:58 | EKG12_ITS ---
Test Reason : PREOP Blood Pressure : / mmHG Vent. Rate : 061 BPM Atrial Rate : 061 BPM P-R Int : 138 ms QRS Dur : 064 ms QT Int : 384 ms P-R-T Axes : 050 000 036 degrees QTc Int : 386 ms Normal sinus rhythm Normal ECG Confirmed by LE MINA, MIGUEL ([id number]), art editor FAISAL CARRERA ([id number]) on 02/07/2022 8:24:31 AM Referred By: Lyubov Valdez Confirmed By:MIGUEL LUJAN MD
[2022-02-06 13:50] LABS: Hematocrit 44.2 % (37-47); Hemoglobin 15.1 g/dL (12.0-15.0); Mean Corp Hgb Conc 34.2 g/dL (32-36); Mean Corpuscular Volume 96.5 fL (81-99); Mean Platelet Vol. 9.6 fl (6.2-12.0); Platelet Count 354 K/mm3 (150-450); RBC Distribution Width CV 12.7 % (11.6-14.6); RBC Distribution Width SD 44.9 fl (35.1-43.9); Red Blood Count 4.58 M/mm3 (4.2-5.4); White Blood Count 12.1 K/mm3 (4.4-11.0)
[2022-02-06 14:28] LABS: Anion Gap 7 (5-15); BUN 21 mg/dL (7-18); BUN/Creat Ratio 18.4 RATIO (10-20); Calcium,Total 9.3 mg/dL (8.5-10.1); Chloride 106 mmol/L (98-107); Creatinine, Serum 1.14 mg/dL (0.55-1.02); EST Glomerular Filtration Rate 52 mL/min (>60); Est Glom Filt Rate - Afr Amer 63 mL/min (>60); Glucose 126 mg/dL (74-106); Potassium 3.2 mmol/L (3.5-5.1); Sodium Level 143 mmol/L (136-145)
[2022-02-09] VITALS (14 sets, daily range): BP systolic 84–143; BP diastolic 48–81; PULSE 45–68; RESP 14–18; TEMP 35.9–36.6; O2SAT 91–100; BMI 40.4
--- NOTE | 2022-02-09 | GALL_PTH ---
PATIENT: TD MAXWELL LOC: [facility] U#:[id number] AGE/SX: 56/F ROOM: RE02/09/[address]: Dr. Lyubov Valdez MD : 1965 BED: DIS: 02/09/2022 SPEC #: [id number] RECD: 02/09/22 17:38 STATUS: JUANCHO REReymundo #: [id number] MARK: 02/09/22 00:[address]: Lyubov Valdez DEPT: SURGICAL PATHOLOGY RECD BY: Lele Mcleod ENTERED: 02/13/22 08:55 SP TYPE: ARIE AVALOS DR: Dr. Antonina Perdue MD Tissues: Gallbladder, NOS Procedures: Surgery Specimen Level III HEADER OPERATION: Laparoscopic cholecystectomy PRE-OP DIAGNOSIS: Cholelithiasis, GERD TISSUE SUBMITTED: Gallbladder MICROSCOPIC DIAGNOSIS Gallbladder, cholecystectomy: Chronic cholecystitis and cholelithiasis. AM:leidy 02/14/2022 MICROSCOPIC DESCRIPTION Slides are reviewed. GROSS DESCRIPTION Received is one container labeled with the patient's name and designated gallbladder. The specimen consists of a gallbladder measuring 6.5 cm in length and up to 2.5 cm in diameter. The external surface is pink-white, smooth and glistening for the most part. Focally it is granular, hemorrhagic and contains cautery artifact. The gallbladder contains green-yellow mucoid bile and one ovoid greenish-brown stone measuring 1.5 cm in greatest dimension. The mucosa is bile-stained and without any mass lesions. The gallbladder wall measures up to 0.3 cm in thickness. Loom Changer sections from the gallbladder and the cystic duct are submitted in one cassette. / SJ:rg 02/13/2022 TC:3 [facility]: [id number]
--- NOTE | 2022-02-09 10:33 | PCM.HP.BLA ---
History and Physical Date of Admission: 02/09/22 Date of Service:? 01/29/22 MR#:[id number] Acct:[id number] Name:TD ALDANA :1965 Age/Sex: 56/F Provider:Dr. Lyubov Valdez MD Location:[facility] Status:Signed Intake Vital Signs ? 01/29/2213:41 Height 5 ft 6 in Weight: 251 lb BMI 40.5 BP 136/89 H Blood Pressure Location Rt brachial Position Sitting Respiration 16 Pulse 75 Pulse Source Monitor Temp 97.5 F L Temp Source Temporal Pulse Oximetry (%) 94 Oxygen Delivery Method room air Intake Visit Reasons:?POSSIBLE GALLBLADDER Chief Complaint: Gallbladder pain Education Supervisor Required: No Is patient in pain?: Yes Allergies azithromycin Allergy (Unknown, Verified 01/29/22 13:42) Unknown Medications albuterol sulfate 90 mcg/actuation aerosol inhaler (ProAir HFA) 2 puff inhalation Q6H PRN 11/11/18 [History Confirmed 01/29/22] aspirin 81 mg tablet,delayed release (Adult Low Dose Aspirin) 81 mg PO DAILY 11/11/18 [History Confirmed 01/29/22] atorvastatin 10 mg tablet 10 mg PO DAILY 11/11/18 [History Confirmed 01/29/22] bupropion HCl 150 mg 24 hr tablet, extended release (Wellbutrin XL) 150 mg PO QAM 11/11/18 [History Confirmed 01/29/22] lisinopril 20 mg-hydrochlorothiazide 25 mg tablet 1 tab PO DAILY 11/11/18 [History Confirmed 01/29/22] metoprolol tartrate 25 mg tablet 25 mg PO BID 11/11/18 [History Confirmed 01/29/22] PFSH Medical History? Abdominal pain Arthritis of knee, degenerative Asthma Depression Gallstones High cholesterol Hypertension Tobacco abuse Surgical History?(Updated 01/29/22 @ 13:37 by Zena Blakely) History of History of knee replacement procedure of right knee History of prior ablation treatment History of total left knee replacement (TKR) Family History? Brother Cancer Heart diseaseMother Diabetes Ovarian cancer Uterine cancer CVA (cerebral vascular accident) HypertensionFather Kidney disease Prostate cancer Social History? Smoking Status:? Current every day smoker second hand exposure:? Yes alcohol intake:? current alcohol intake frequency: a few times a week substance use type:? does not use caffeine:? Yes what type of physical activity do you participate in:? none frequency:? does not exercise HPI HPI HPI: TD MAXWELL, is a 56 F who presents to the office today for gallstones.? Patient states last January patient did have a gallbladder attack and was also planned to see a surgeon at [place] however due to COVID that did get canceled.? Patient was following a low fat diet at that time she was also considering getting bariatric surgery.? Patient states she has not had an attack in a while but does have some discomfort in the right upper quadrant described as some brief sharp pain not directly related to food.? Patient also has feeling of bloating occasionally as well..? Patient's ultrasound last year report dated to 7 mm wall, more recent ultrasound done this year shows a 2 mm wall gallstone normal common bile duct no pericholecystic fluid.? Patient's LFTs are within normal limits patient's white blood count 11.8.? Patient is currently on omeprazole 40 mg p.o. daily denies having any symptoms on the medication.? Previously had burning up her esophagus.? Patient states she does have diarrhea after eating no matter what she eats and this has been going on for a while.? Patient's never had a previous colonoscopy. ROS General General: Yes weight change; No appetite, fatigue, colon cancer, breast cancer or weakness Additional Details: Weight gain HEENT HEENT: No difficulty swallowing, eye injury, eye surgery, swollen glands or hoarseness Endo Endocrine: Yes diabetes mellitus; No thyroid disease, thyroid cancer, Hair loss, heat intolerance or cold intolerance Skin Skin: No rash or changing moles Breast Breast: No left breast lump, right breast lump, nipple discharge, breast pain, abnormal mammogram, abnormal US or breast enlargement Musc Musculoskeletal: Yes back problems; No arthritis, rheumatoid arthritis, gout or joint pain Cardio Cardiovascular: No murmur, pacemaker, heart disease, atrial fibrillation, high blood pressure, heart attack, heart stent, palpitations, shortness of breat with exertion or chest pain Psych Psychiatric: No depression, anxiety or hearing voices Resp Respiratory: No shortness of breath, Yes sleep apnea, No cough, No COPD, Yes asthma, No emphysema and No wheezing Gastro Gastrointestinal: Yes abdominal pain, No nausea or vomiting, No diarrhea, No constipation, No blood in stool, Yes acid reflux, Yes hemorrhoids, No ulcers, Yes gallbladder problem and No black,tarry stools Jim Hematologic: No blood thinners, No blood disorders, No bleeding, No anemia and No blood clots Neuro Neurologic: No system reviewed and no additional complaints, except as documented, No as per HPI, No abnormal gait, No abnormal hearing, No abnormal movements, No abnormal speech, No behavioral changes, No burning sensations, No confusion, No convulsions, No disequilibrium, No dizziness, No localized weakness, No frequent falls, No headache(s), No lack of coordination, No loss of vision, No memory loss, No numbness, No other visual disturbances, No radicular pain, No restless legs, No sensory deficit, No syncope, No tingling, No tremor(s), No weakness and No other Exam Const General: cooperative, healthy appearing and no acute distress [facility] Head: normal to inspection Resp Effort & Inspection: normal respiratory effort Cardio Rate: regular rate GI Inspection: non-distended Palpation: soft, no guarding, no hernias and nontender Skin General: no rashes or lesions noted Neuro General: patient oriented x3 Extrem General: no clubbing, cyanosis or edema Psych Affect: normal affect Assessment and Plan Assessment and Plan (1) Cholelithiasis: ?Status:?Acute (2) GERD (gastroesophageal reflux disease): ?Status:?Acute Plan Patient stay on omeprazole.? Discussed that her diarrhea after eating could be possibly IBS but would recommend getting a colonoscopy in the future to help rule out any other etiologies. Reviewed the anatomy with the patient and discussed the procedure: laparoscopic cholecystectomy with possible cholangiograms, possible open. Review risks including but not limited to bleeding, infection, hernia, bile leak, retained gallstones requiring another procedure ERCP- Endoscopic Retrograde Cholangiopancreatography, injury to another organ (bile ducts, common bile duct, small bowel, etc.) and conversion to an open procedure. All questions were answered. Lyubov Valdez M.D. Pager: [phone] [facility] [address] [place] [address], [facility], [address] [place] [address] Office: [phone] Coding Level of Care Code Off vis,est,level 4 Diagnoses Cholelithiasis? K80.20 GERD (gastroesophageal reflux disease)? K21.9 01/31/22 1301 <Electronically signed by Lyubov Valdez MD> Date Lyubov Valdez MD
[2022-02-09] MEDS: Lactated Ringers 1,000 ML 15 ML IV ×2 (10:39→13:45)
[2022-02-09] MEDS: Cefotetan 2 GM in 0.9% NS 100 ML IV (11:46)
[2022-02-09] MEDS: Bupivacaine 0.25% 30 ML Vial (13:10)
--- NOTE | 2022-02-09 13:15 | OP.PCM_ITS ---
Report of Operation Date of Procedure: 02/09/22 Pre-Operative Diagnosis: Symptomatic cholelithiasis Post-Operative Diagnosis: Chronic cholecystitis, cholelithiasis Surgery/Procedure Performed:: Laparoscopic cholecystectomy Surgeon: Lyubov Valdez edge brusher: Imelda Blas Type of Anesthesia: General/Supplemental Anesthesiologist: Roberto Madrigal Special Medications: Cefotetan 2 g IV x1 Specimen's removed: Gallbladder and stone Estimated Blood Loss (mL): 20 cc Description of Procedure: Indications: this is a 56 year-old female who developed abdominal pain/nausea/vomiting and on workup was found to have acute cholecystitis last year about January but due to COVID did not have surgery. Repeat ultrasound showed cholelithiasis, with a normal common bile duct. Laparoscopic cholecystectomy was elected. Description procedure: The patient was placed on operating table in supine position. A timeout was completed verifying correct patient, procedure, site, position and special equipment prior to beginning procedure. General Anesthesia was induced. The abdomen was prepped and draped in usual sterile fashion. An incision was made in the natural skin line above the umbilicus. The fascia was elevated and incised. The peritoneum was elevated and incised. Entry into the peritoneum was confirmed visually and no bowel was noted in the vicinity of the incision. Rodgers trocar was placed. The abdomen was insufflated with carbon dioxide to a pressure of 12-15 mmHg. Patient tolerated insufflation well. The laparoscope was then inserted and abdomen inspected. No injuries from initial trocar placement were noted. Additional trochars were then inserted in the following locations 5 mm trocar in the epigastrium and 2 more 5 mm trochars along the right costal margin. The abdomen was inspected no abnormalities were found. The table is placed in reverse Trendelenburg position with the right side up. The dome of the gallbladder was grasped with atraumatic grasper passed through the lateral port and retracted over the dome of the liver. Infundibulum was then grasped with atraumatic grasper through the midclavicular port and retracted to the right lower quadrant. This maneuver exposed Calot's triangle. The peritoneum overlying the gallbladder infundibulum was then incised and cystic duct and artery identified and circumferentially dissected. Due to very dense adhesions of the fundus of the gallbladder unable to complete cholangiograms but get good visualization of the cystic duct. The cystic duct and artery were then doubly clipped and divided close to the gallbladder. The gallbladder then dissected from its peritoneal attachments by e lectrocautery. Hemostasis was checked and the gallbladder and contained stones were removed using the endoscopic retrieval bag through the umbilical port. The gallbladder is passed off table as specimen. The gallbladder fossa was irrigated with saline and hemostasis obtained. There is no evidence of bleeding from the gallbladder fossa or cystic artery leakage of bile from the cystic duct stump. Secondary trochars removed under direct vision. No bleeding was noted the trocar sites. The laparoscope was withdrawn and umbilical trocar removed. The abdomen was allowed to collapse. The fascia of the 12 mm trocar was closed with a [id number] 0 Vicryl suture. The skin was closed with sutures of 4-0 Monocryl and Steri-Strips. The patient was extubated. The patient tolerated procedure well and was taken to the postanesthesia care unit in stable condition. Complications none
--- NOTE | 2022-02-09 13:18 | DCINST_ITS ---
Discharge Instructions Diet Discharge Diet: Light diet - advance as tolerated Activity Discharge Activity: May Not Drive (while taking narcotic pain medications.) May shower in (days): 1 Lifting Restrictions: no lifting >20 lbs x 2 wks, no strenuous exercise for 4 wks Dressing / Incision Call your doctor if your incision/area has: Continuous Slow Oozing, Sudden Increased Bleeding, Increased Pain/ Swelling, Increased Redness, Foul Smelling Discharge and Swelling at the incision site Call your doctor if you observe: Fever of 101 or Higher Remove Dressing in: 2 days Cleanse incision/area with: Soap & Water Additional Dressing/Incision Instructions:: Steri-Strips will fall off in 7 to 10 days, if they do not fall off okay to remove after 10 days. Follow Up Care Please Follow Up With: Lyubov Valdez MD When: Call the office for a follow-up appointment 2 weeks; after 5 PM and on the weekends call [phone] with any concerns. Test Results: Test results from this visit will be discussed in further detail at your follow- up appointment, if applicable. Discharge Plan Admission Attending Provider: Lyubov Valdez Primary Care Provider: Antonina Perdue Instructions Additional Instructions / Restrictions: Okay to take ibuprofen 400-600 mg PO q6hr PRN along with the Percocet. Avoid Tylenol since there is already Tylenol in the Percocet. Take all pain meds with food. Percocet can cause constipation recommend taking daily stool softener (i.e. Colace/docusate) while taking the pain meds. Recommend starting some MiraLAX in 1 to 2 days if no bowel movement. If still no bowel movement the following day recommend taking magnesium citrate half the bottle and waiting 4-6 hours if still no results take the other half the bottle. Discharge Orders/Prescriptions Prescriptions: New oxycodone-acetaminophen 5-325 mg tablet 1 - 2 tab PO Q6H PRN (Reason: pain) 3 Days Qty: 10 0RF Continued atorvastatin 10 mg tablet 10 mg PO DAILY lisinopril-hydrochlorothiazide 20-25 mg tablet 1 tab PO DAILY metoprolol tartrate 25 mg tablet 25 mg PO BID albuterol sulfate [ProAir HFA] 90 mcg/actuation HFA aerosol inhaler 2 puff INHALATION Q6H PRN (Reason: SOB) aspirin [Adult Low Dose Aspirin] 81 mg tablet,delayed release (DR/EC) 81 mg PO DAILY omeprazole 20 mg Capsule,Delayed Release(Dr/Ec) 20 mg PO DAILY Referrals / Follow Up: Antonina Perdue MD [Primary Care Provider] - Disposition Disposition (needs filled in before D/C Order can be placed): Home, Self Care
== END 2022-02-09 17:38 | disposition home or self-care (01) ==
LOC: SDC 10:12 → AC 10:13
PROVIDERS: Anesthesiology; PCP Family Medicine; Referring Provider Surgery; Visit Provider Surgery
PROC: (CPT 47610; principal; 2022-02-09 11:45)
DX: K80.10 Calculus of gallbladder with chronic cholecystitis without obstruction (principal); F17.200 Nicotine dependence, unspecified, uncomplicated; J45.909 Unspecified asthma, uncomplicated; F32.A Depression, unspecified; E78.00 Pure hypercholesterolemia, unspecified; Z87.19 Personal history of other diseases of the digestive system; I10 Essential (primary) hypertension; Z79.899 Other long term (current) drug therapy; Z79.82 Long term (current) use of aspirin; K21.9 Gastro-esophageal reflux disease without esophagitis
CPT/HCPCS: 47562; 00790; 36415; 80048; 85027; 88304; 93005; J7120; J2405

== ENCOUNTER → 2022-05-17 | Outpatient (CLI) | payer MEDICARE, MEDICAID, SELFPAY ==
[2022-05-17 17:40] LABS: Absolute Lymphocyte Count 2.11 X10^3/uL (0.83-4.51); Absolute Neutrophil Count 5.4 X10^3/uL (2.0-7.7); Basophil# 0.07 X10^3/uL; Basophil% 0.8 % (0-1); Eosinophil# 0.07 X10^3/uL; Eosinophils% 0.8 % (0-5); Hemoglobin 15.8 g/dL (12.0-15.0); Lymphocyte # 2.11 X10^3/ul (0.83-4.51); Lymphocyte % 24.6 % (19-41); Mean Corp Hgb Conc 32.9 g/dL (32-36); Mean Corpuscular Hgb 32.8 pg (27.0-32.0); Mean Corpuscular Volume 99.8 fL (81-99); Mean Platelet Vol. 9.8 fl (6.2-12.0); Monocyte# 0.89 X10^3/uL; Monocyte% 10.4 % (0-10); NRBC Flagged by Analyzer 0 % (0-5); Neutrophil # 5.35 X10^3/uL (2.7-7.7); Neutrophil % 62.5 % (47-70); Platelet Count 316 K/mm3 (150-450); RBC Distribution Width CV 14.2 % (11.6-14.6); RBC Distribution Width SD 52.1 fl (35.1-43.9); Red Blood Count 4.81 M/mm3 (4.2-5.4); White Blood Count 8.6 K/mm3 (4.4-11.0)
[2022-05-17 18:01] LABS: Hemoglobin A1c 6.2 % (3.8-5.6)
[2022-05-17 18:06] LABS: ALB/GLOB Ratio 0.9 RATIO (0.9-2.4); AST(SGOT) 40 U/L (15-37); Alanine Aminotransfer ALT/SGPT 51 U/L (13-56); Albumin, Serum 3.4 g/dL (3.2-5.0); Alkaline Phosphatase 84 U/L (45-117); Anion Gap 8 (5-15); BUN 20 mg/dL (7-18); BUN/Creat Ratio 16.3 RATIO (10-20); Calcium,Total 9.1 mg/dL (8.5-10.1); Chloride 105 mmol/L (98-107); Creatinine, Serum 1.23 mg/dL (0.55-1.02); EST Glomerular Filtration Rate 48 mL/min (>60); Est Glom Filt Rate - Afr Amer 58 mL/min (>60); Globulin 3.9 g/dL (2.2-4.2); Glucose 114 mg/dL (74-106); Potassium 3.4 mmol/L (3.5-5.1); Protein, Total 7.3 g/dL (6.4-8.2); Sodium Level 141 mmol/L (136-145)
== END | disposition home or self-care (01) ==
LOC: BFHLAB 16:02
PROVIDERS: PCP Family Medicine; Visit Provider Family Medicine
DX: E11.9 Type 2 diabetes mellitus without complications (principal); I10 Essential (primary) hypertension
CPT/HCPCS: 36415; 80053; 83036; 85025

== ENCOUNTER → 2022-11-16 | Outpatient (CLI) | payer MEDICARE, MEDICAID, SELFPAY ==
[2022-11-16 12:50] LABS: Absolute Lymphocyte Count 3.42 X10^3/uL (0.83-4.51); Absolute Neutrophil Count 9.4 X10^3/uL (2.0-7.7); Basophil% 0.7 % (0-1); Eosinophil# 0.26 X10^3/uL; Eosinophils% 1.8 % (0-5); Hematocrit 44.7 % (37-47); Hemoglobin 14.9 g/dL (12.0-15.0); Lymphocyte # 3.42 X10^3/ul (0.83-4.51); Lymphocyte % 24.1 % (19-41); Mean Corp Hgb Conc 33.3 g/dL (32-36); Mean Corpuscular Hgb 33.4 pg (27.0-32.0); Mean Corpuscular Volume 100.2 fL (81-99); Mean Platelet Vol. 9.8 fl (6.2-12.0); Monocyte# 0.91 X10^3/uL; Monocyte% 6.4 % (0-10); NRBC Flagged by Analyzer 0 % (0-5); Neutrophil # 9.42 X10^3/uL (2.7-7.7); Neutrophil % 66.6 % (47-70); Platelet Count 376 K/mm3 (150-450); RBC Distribution Width CV 14.1 % (11.6-14.6); RBC Distribution Width SD 52.1 fl (35.1-43.9); Red Blood Count 4.46 M/mm3 (4.2-5.4); White Blood Count 14.2 K/mm3 (4.4-11.0)
[2022-11-16 13:36] LABS: Microalbumin,Random Urine 5.9 mg/L (NO RANGE EST.); Microalbumin:Creatinine Ratio 3.8 mg/g CRE (<30 mg/g CRE)
[2022-11-16 13:43] LABS: Albumin, Serum 3.4 g/dL (3.2-5.0); BUN 17 mg/dL (7-18); BUN/Creat Ratio 15.5 RATIO (10-20); EST Glomerular Filtration Rate 54 mL/min (>60); Est Glom Filt Rate - Afr Amer 66 mL/min (>60); Glucose 86 mg/dL (74-106); Protein, Total 7.4 g/dL (6.4-8.2)
[2022-11-16 13:44] LABS: ALB/GLOB Ratio 0.8 RATIO (0.9-2.4); AST(SGOT) 16 U/L (15-37); Alanine Aminotransfer ALT/SGPT 25 U/L (13-56); Alkaline Phosphatase 75 U/L (45-117); Anion Gap 9 (5-15); Calcium,Total 9.1 mg/dL (8.5-10.1); Chloride 107 mmol/L (98-107); Cholesterol 175 mg/dL (200); High Density Lipoprotein 53 mg/dL; Potassium 3.3 mmol/L (3.5-5.1); Sodium Level 143 mmol/L (136-145); Triglycerides 161 mg/dL; Very Low Density Lipoprotein 32 mg/dL (5-40)
[2022-11-16 14:07] LABS: HIV - WCH Non-Reactive (Nonreactive)
[2022-11-16 14:41] LABS: Chlamydia Trachomatis by PCR Negative (Negative); Neisserai gonorrhoeae by PCR Negative (Negative); Probe Check PASS; Sample Adequacy Control PASS; Specimen Processing Control PASS
== END | disposition home or self-care (01) ==
LOC: BFHLAB 10:57
PROVIDERS: PCP Family Medicine; Referring Provider Family Medicine; Visit Provider Family Medicine
DX: I10 Essential (primary) hypertension (principal)
CPT/HCPCS: 36415; 80053; 80061; 82043; 82570; 85025; 86703; 87491; 87591

== ENCOUNTER → 2023-02-08 | Outpatient (CLI) | payer MEDICARE, MEDICAID, SELFPAY ==
[2023-02-08 12:48] LABS: Thyroid Stim Hormone (TSH) 1.21 uIU/mL (0.358-3.74)
[2023-02-12 19:28] LABS: Vitamin B12 182 pg/mL (211-911); Vitamin D,25 Hydroxy 18.7 ng/mL
== END | disposition home or self-care (01) ==
LOC: BFHLAB 11:08
PROVIDERS: PCP Family Medicine; Referring Provider Family Medicine; Visit Provider Family Medicine
DX: R53.83 Other fatigue (principal); N18.31 Chronic kidney disease, stage 3a; E78.00 Pure hypercholesterolemia, unspecified
CPT/HCPCS: 36415; 82306; 82607; 82746; 84443